=== PATIENT | female | born 1990 | race Two or more races ===

== ENCOUNTER 2017-03-19 10:28 | Emergency (ER) | payer OTHER ==
[2017-03-19 10:32] VITALS: BMI 46.7
[2017-03-19] MEDS ORDERED: ONDANSETRON 4 MG/2 ML VIAL IVPUSH ONE (11:10)
[2017-03-19] MEDS ORDERED: SODIUM CHLORIDE 0.9% 1000 ML INFUS.BAG IV ONE (11:10)
[2017-03-19] MEDS ORDERED: FAMOTIDINE 20 MG/50 ML IVPB 50 ML IVPB ONE ×2 (11:10→11:23)
[2017-03-19] MEDS ORDERED: ONDANSETRON 4 MG/2 ML VIAL ONE (11:23)
--- NOTE | 2017-03-19 11:23 | PDOC ---
History of Present Illness - General History Source: Patient Exam Limitations: No Limitations - History of Present Illness Initial Comments: 03/19/17 11:23 The patient is a 26 year old female, with a significant past medical history of Asthma who presents to the emergency department with nausea and vomiting ( nonbloody, bilious) for the past 3 days. Patient reports mild epigastric pain with constipation and chills. Patient is unable to tolerate PO solids or liquids. Patients LMP was 03/02/2017 and LBM was 3 days ago. She denies chest pain, headache or dizziness. She denies fever, chills. She denies dysuria, frequency, urgency or hematuria. Allergies: NKA Past surgical history: None Social history: Current everyday smoker PCP: None Family hx: Lymphoma, Diabetes <Maggie Chapman - Last Filed: 03/19/17 11:23> <Francy Peters - Last Filed: 03/19/17 14:58> - General Chief Complaint: Nausea/Vomiting Stated Complaint: VOMITING Time Seen by Provider: 03/19/17 10:50 Past History <Maggie Chapman - Last Filed: 03/19/17 11:23> - Past Medical History Anemia: No Asthma: Yes Cancer: No Cardiac Disorders: No CVA: No Psychiatric Problems: Yes (BI-POLAR) - Surgical History Abdominal Surgery: No Appendectomy: No Cardiac Surgery: No Cholecystectomy: No - Immunization History Immunization Up to Date: Yes - Suicide/Smoking/Psychosocial Hx Smoking Status: No Smoking History: Current every day smoker Have you smoked in the past 12 months: Yes Number of Cigarettes Smoked Daily: 4 Information on smoking cessation initiated: No Hx Alcohol Use: No Drug/Substance Use Hx: No Substance Use Type: None <Francy Peters - Last Filed: 03/19/17 14:58> - Past Medical History Allergies/Adverse Reactions: Allergies Allergy/AdvReac Type Severity Reaction Status Date / Time No Known Allergies Allergy Verified 03/19/17 10:29 Home Medications: Ambulatory Orders Cyclobenzaprine HCl [Flexeril -] 10 mg PO TID #21 tablet 09/25/14 Lamotrigine [Lamictal] 300 mg PO BID 09/25/14 [place] Carbonate [Eskalith -] 400 mg PO TID 09/25/14 Lurasidone HCl [Latuda] 20 mg PO DAILY 09/25/14 Methylprednisolone [Medrol Dose Pj] 4 mg PO ASDIR #21 tablet 09/25/14 Naproxen [Naprosyn -] 500 mg PO BID #28 tablet 09/25/14 Oxycodone HCl/Acetaminophen [Percocet 5/325 -] 1 - 2 tab PO Q6H #20 tab Famotidine [Pepcid] 20 mg PO DAILY #14 tablet 03/19/17 Ondansetron [Zofran Odt -] 4 mg SL TID PRN #10 od.tablet 03/19/17 Review of Systems - Review of Systems Able to Perform ROS?: Yes Comments:: 03/19/17 11:23 GENERAL/CONSTITUTIONAL: No fever or chills. No weakness. HEAD, EYES, EARS, NOSE AND THROAT: No change in vision. No ear pain or discharge. No sore throat. GASTROINTESTINAL: + nausea, vomiting, constipation, abdominal pain. No diarrhea. GENITOURINARY: No dysuria, frequency, or change in urination. CARDIOVASCULAR: No chest pain or shortness of breath. RESPIRATORY: No cough, wheezing, or hemoptysis. MUSCULOSKELETAL: No joint or muscle swelling or pain. No neck or back pain. SKIN: No rash NEUROLOGIC: No headache, vertigo, loss of consciousness, or change in strength/ sensation. ENDOCRINE: No increased thirst. No abnormal weight change. HEMATOLOGIC/LYMPHATIC: No anemia, easy bleeding, or history of blood clots. ALLERGIC/IMMUNOLOGIC: No hives or skin allergy. <Maggie Chapman - Last Filed: 03/19/17 11:23> *Physical Exam - Vital Signs Last Vital Signs Temp Pulse Resp BP Pulse Ox 98.2 F 87 18 144/84 100 03/19/17 10:29 03/19/17 10:29 03/19/17 10:29 03/19/17 10:29 03/19/17 10:29 - Physical Exam Comments: 03/19/17 11:24 GENERAL: Awake, alert, and fully oriented, in no acute distress. +Obese HEAD: No signs of trauma EYES: PERRLA, EOMI, sclera anicteric, conjunctiva clear ENT: Auricles normal inspection, hearing grossly normal, nares patent, oropharynx clear without exudates. Moist mucosa NECK: Normal ROM, supple, no lymphadenopathy, JVD, or masses LUNGS: Breath sounds equal, clear to auscultation bilaterally. No wheezes, and no crackles HEART: Regular rate and rhythm, normal S1 and S2, no murmurs, rubs or gallops ABDOMEN: +Mild epigastric tenderness. Soft, nontender, normoactive bowel sounds. No guarding, no rebound. No masses EXTREMITIES: Normal range of motion, no edema. No clubbing or cyanosis. No cords, erythema, or tenderness NEUROLOGICAL: Cranial nerves II through XII grossly intact. Normal speech, normal gait SKIN: Warm, Dry, normal turgor, no rashes or lesions noted. <Maggie Chapman - Last Filed: 03/19/17 11:23> - Vital Signs Last Vital Signs Temp Pulse Resp BP Pulse Ox 98.2 F 87 18 144/84 100 03/19/17 10:29 03/19/17 10:29 03/19/17 10:29 03/19/17 10:29 03/19/17 10:29 <Francy Peters - Last Filed: 03/19/17 14:58> ED Treatment Course - LABORATORY CBC & Chemistry Diagram: 03/19/17 11:00 03/19/17 11:00 - RADIOLOGY Radiology Studies Ordered: Category Date Time Status ABDOMEN FLAT & UPRIGHT [RAD] Stat Radiology 03/19/17 11:09 Ordered <Francy Peters - Last Filed: 03/19/17 14:58> Medical Decision Making - Medical Decision Making 03/19/17 13:31 a/p: 26yo female with n/v x 3 days and inability to tolerate PO -labs -xray abd -nausea control -ivf hydration -preg test -re-eval 03/19/17 13:32 pt with persistent nausea despite zofran, will add reglan 03/19/17 14:54 pt feeling better. po challenge currently. tolerating po 03/19/17 14:54 discussed all labs and imaging. Pt stable for d/c to home. Discussed need to follow up with PMD and with GI. ANswered all questions. Pt understands all reasons to return to the ED. <Francy Peters - Last Filed: 03/19/17 14:58> *DC/Admit/Observation/Transfer - Attestations Scribe Attestion: 03/19/17 11:24 Documentation prepared by Maggie Chapman, acting as medical records coordinator for Francy Peters DO <Maggie Chapman - Last Filed: 03/19/17 11:23> - Discharge Dispostion Admit: No - Attestations Physician Attestion: 03/19/17 14:58 I, Dr. Francy Peters DO, attest that this document has been prepared under my direction and personally reviewed by me in its entirety. I further attest, that it accurately reflects all work, treatment, procedures and medical decision -making performed by me. <Francy Peters - Last Filed: 03/19/17 14:58> Diagnosis at time of Disposition: Nausea and vomiting - Discharge Dispostion Disposition: HOME Condition at time of disposition: Stable - Prescriptions Prescriptions: Famotidine [Pepcid] 20 mg PO DAILY #14 tablet Ondansetron [Zofran Odt -] 4 mg SL TID PRN #10 od.tablet PRN Reason: Nausea And/Or Vomiting - Referrals Referrals: Ari Reddy MD [Staff Physician] - Loc Orta MD [Staff Physician] - - Patient Instructions Printed Discharge Instructions: DI for Vomiting -- Adult, DI for Nausea -- Adult Additional Instructions: Please take all meds as prescribed. Please follow up with your PMD and the municipal court magistrate. Please return to the ED with any further concerns. - Post Discharge Activity Forms/Work/School Notes: Back to Work
[2017-03-19 11:32] LABS: BASOPHIL 0.9 % (0-2.0); EOSINOPHIL 3.6 % (0-4.5); MCHC 29.9 g/dl (32.0-36.0); MEAN CELL VOLUME 64.1 fl (80-96); MEAN PLT VOLUME 8.4 fl (7.5-11.1); NEUTROPHILS 62.5 % (42.8-82.8); PLATELET COUNT 279 K/MM3 (134-434); RDW 20.7 % (11.6-15.6); WHITE BLOOD COUNT 5.4 K/mm3 (4.0-10.0)
[2017-03-19 11:36] LABS: URINE APPEARANCE CLOUDY; URINE BILIRUBIN NEGATIVE (NEGATIVE); URINE BLOOD NEGATIVE (NEGATIVE); URINE COLOR YELLOW; URINE GLUCOSE (UA) NEGATIVE (NEGATIVE); URINE KETONE NEGATIVE (NEGATIVE); URINE LEUK ESTERASE TRACE (NEGATIVE); URINE NITRITE NEGATIVE (NEGATIVE); URINE UROBILINOGEN NEGATIVE mg/dL (0.2-1.0)
[2017-03-19 11:39] LABS: URINE PROTEIN 1+ (NEGATIVE)
[2017-03-19 11:40] LABS: URINE MUCUS MODERATE; URINE RBC 1 /hpf (0-3); URINE WBC 9 /hpf (3-5)
[2017-03-19 11:42] LABS: MCH 19.1 pg (25.7-33.7)
[2017-03-19 12:02] LABS: ALK PHOS 64 U/L (45-117); ANION GAP 5 (8-16); BILIRUBIN,TOTAL 0.5 mg/dL (0.2-1.0); CALCIUM 8.6 mg/dL (8.5-10.1); CO2 27 mmol/L (21-32); CREATININE 0.6 mg/dL (0.55-1.02); GLUCOSE,RANDOM 93 mg/dL (74-106); MAGNESIUM 2.3 mg/dL (1.8-2.4); SGOT/AST 15 U/L (15-37); SGPT/ALT 21 U/L (12-78); TOT PROT 7.9 g/dl (6.4-8.2)
[2017-03-19 12:49] LABS: HYPOCHROMIA 2+; MICROCYTOSIS 2+
[2017-03-19 12:50] LABS: ANISOCYTOSIS 2+
[2017-03-19] MEDS ORDERED: METOCLOPRAMIDE HCL INJECTION 10 MG/2 ML VIAL ONE (13:31)
[2017-03-19] MEDS ORDERED: METOCLOPRAMIDE HCL INJECTION 10 MG/2 ML VIAL IVPUSH ONE (13:31)
[2017-03-19 15:32] VITALS: BP 140/85; PULSE 80; TEMP 98.6
== END 2017-03-19 14:45 | disposition home or self-care (01) ==
LOC: JER 10:28
PROC: 3E033GC Introduction of Other Therapeutic Substance into Peripheral Vein, Percutaneous Approach (ICD-10-PCS; principal; 2017-03-19)
PROC: 3E0337Z Introduction of Electrolytic and Water Balance Substance into Peripheral Vein, Percutaneous Approach (ICD-10-PCS; 2017-03-19)
DX: R11.2 Nausea with vomiting, unspecified (principal); F17.210 Nicotine dependence, cigarettes, uncomplicated; J45.909 Unspecified asthma, uncomplicated
CPT/HCPCS: 36415; 74020-TC; 80053; 81003; 81015; 83690; 83735; 84703; 85025; 99281-25

== ENCOUNTER 2018-02-06 22:12 | Inpatient (IN) | payer OTHER ==
[2018-02-06 22:39] VITALS: BMI 41.1
--- NOTE | 2018-02-06 23:28 | PDOC ---
History of Present Illness - General Chief Complaint: Syncope/Near Syncope Stated Complaint: SYNCOPE, DIZZINES Time Seen by Provider: 02/06/18 23:28 History Source: Patient, Friend Exam Limitations: No Limitations - History of Present Illness Initial Comments: 02/06/18 23:36 27F with PMH of asthma, bipolar disorder (used to be on lithium many years ago now not on meds), who presents to the ER with her cousins after a syncopal event. Per patient and cousins she was eating dinner a few hours ago and all of a sudden she felt her heart slow down, she got very tired, "felt like the ground was being taken out from under me and then I passed out." Patient was able to put her hands out on the table before it happened. The patient's 2 cousins are at bedside and verify her story. They deny any trauma. The patient denies any symptoms or pain at this time. She states she feels very tired and her body feels heavy. She states [place]. She currently denies nausea, vomiting, fever, chills, chest pain, shortness of breath, urinary or GI symptoms. She denies visual changes or loss of bowel or bladder function. She admits to smoking 4 cigarettes a day and smoking marijuana for recreational purposes. She states she is being follows by a experimental outboard motors mechanic for anemia and she is getting Iron infusions. She is currently being worked up for thalassemia and the lab results are pending. Past History - Past Medical History Allergies/Adverse Reactions: Allergies Allergy/AdvReac Type Severity Reaction Status Date / Time No Known Allergies Allergy Verified 02/06/18 22:30 Home Medications: Ambulatory Orders NK [No Known Home Medication] 02/07/18 Anemia: Yes (Thalassemia?) Asthma: Yes Cancer: No Cardiac Disorders: No CVA: No COPD: No Psychiatric Problems: Yes (BI-POLAR) - Surgical History Abdominal Surgery: No Appendectomy: No Cardiac Surgery: No Cholecystectomy: No - Immunization History Immunization Up to Date: Yes - Suicide/Smoking/Psychosocial Hx Smoking Status: No Smoking History: Current every day smoker (4 cigarettes a day) Have you smoked in the past 12 months: Yes Number of Cigarettes Smoked Daily: 4 Information on smoking cessation initiated: No Hx Alcohol Use: No Drug/Substance Use Hx: Yes (Marijuana) Substance Use Type: Marijuana Review of Systems - Review of Systems Able to Perform ROS?: Yes Is the patient limited Macedonian proficient: No Constitutional: Yes: See HPI, Weakness. No: Chills, Fever HEENTM: No: Symptoms Reported, See HPI, Eye Pain, Blurred Vision, Tearing, Recent change in vision, Double Vision, Cataracts, Ear Pain, Ocular Prothesis, Ear Discharge, Nose Pain, Nose Congestion, Tinnitus, Nose Bleeding, Hearing Loss , Throat Pain, Throat Swelling, Mouth Pain, Dental Problems, Difficulty Swallowing, Mouth Swelling, Other Respiratory: No: Symptoms reported, See HPI, Cough, Orthopnea, Shortness of Breath, SOB with Exertion, SOB at Rest, Stridor, Wheezing, Productive cough, Hemoptysis, Other Cardiac (ROS): Yes: Syncope, Other (felt her heart slow down) ABD/GI: No: Symptoms Reported, See HPI, Abdominal Distended, Abd. Pain w/ defecation, Blood Streaked Bowels, Constipated, Diarrhea, Difficulty Swallowing , Nausea, Poor Appetite, Poor Fluid Intake, Rectal Bleeding, Vomiting, Indigestion, Abdominal cramping, Tarry Stools, Other : No: Symptoms Reported, See HPI, Burning, Dysuria, Discharge, Frequency, Flank Pain, Hematuria, Incontinence, Pain, Urgency, Testicular Mass, Testicular Swelling, Lesions, Testicular Pain, Other Musculoskeletal: No: Symptoms Reported, See HPI, Back Pain, Gout, Joint Pain, Joint Swelling, Muscle Pain, Muscle Weakness, Neck Pain, Joint Stiffness, Other Integumentary: No: Symptoms Reported, See HPI, Bruising, Change in Color, Change in Hair/Nails, Dryness, Erythema, Flushing, Lesions, Lumps, Pallor, Pruritus, Rash, Sweating, Other *Physical Exam - Vital Signs Last Vital Signs Temp Pulse Resp BP Pulse Ox 98.8 F 93 H 18 129/74 100 02/06/18 22:31 02/06/18 22:31 02/06/18 22:31 02/06/18 22:31 02/06/18 22:31 ED Treatment Course - LABORATORY CBC & Chemistry Diagram: 02/07/18 00:01 02/07/18 00:01 Medical Decision Making - Medical Decision Making 02/07/18 00:08 27F with no significant PMH presents to the ER after a syncopal event. DDx includes but not limited to: Arrhythmias such as A. flutter, SVT, WPW, Brug[place], HOCM, prolonged QT syndrome, and ectopic will do: CBC CMP Mg Phos TSH Cardiac profile UA Upreg EKG IVF Reassess Likely place on telemetry observation 02/07/18 01:56 Labs noted Patient's TSH consistent with hyperthyroidism TSH is <0.01 Will admit for syncope and new onset symptomatic hyperthyroidism will add on T3 T4 Patient was signed out to Dr. Yousif who has assumed care of the patient and will follow up all ancillary studies *DC/Admit/Observation/Transfer Diagnosis at time of Disposition: Hyperthyroidism - Discharge Dispostion Decision to Admit order: Yes - Referrals Referrals: Jose Armando Chambers MD [Primary Care Provider] - - Patient Instructions - Post Discharge Activity
[2018-02-06] MEDS ORDERED: SODIUM CHLORIDE 1,000 ML IV STA (23:42)
--- NOTE | 2018-02-07 00:07 | PDOC ---
Attending Attestation - HPI HPI: 02/07/18 01:13 Patient is a 27 year old female with a significant past medical history of asthma, bipolar disorder, who presents to the ED with complaints of a syncopal episode. As per patient's cousin, patient was eating dinner this evening when she began to suddenly feel like her heart was slowing down with associated sudden lethargy. Patient's reports patient began to complain that it felt as if the ground was being taken out from underneath here, before losing consciousness. As per patient's family, patient's LOC was witness stating she did not hit her head on the table or floor stating she braced her hands before falling. Patient reports experiencing no pain while in the ED but does state she feels increasingly tired, with general body heaviness. Denies chest pain, sob. Denies fevers, chills. Denies nausea, vomiting. Denies contact with sick individuals, out of state travelling. Denies any other symptoms. Allergies: none Social history: Current smoker (4 cigarettes per day). No alcohol. Current marijuana use. Surgical history: None PMD: Dr. Jose Armando Chambers - Physicial Exam PE: 02/07/18 01:13 GENERAL: Awake, alert, and fully oriented, in no acute distress HEAD: No signs of trauma EYES: PERRLA, EOMI, sclera anicteric, conjunctiva clear ENT: Auricles normal inspection, hearing grossly normal, nares patent, oropharynx clear without exudates. Moist mucosa NECK: Normal ROM, supple, no lymphadenopathy, JVD, or masses LUNGS: Breath sounds equal, clear to auscultation bilaterally. No wheezes, and no crackles HEART: Regular rate and rhythm, normal S1 and S2, no murmurs, rubs or gallops ABDOMEN: Soft, nontender, normoactive bowel sounds. No guarding, no rebound. No masses EXTREMITIES: Normal range of motion, no edema. No clubbing or cyanosis. No cords, erythema, or tenderness NEUROLOGICAL: Cranial nerves II through XII grossly intact. Normal speech, normal gait SKIN: Warm, Dry, normal turgor, no rashes or lesions noted. <Ron Shine - Last Filed: 02/07/18 01:13> - Resident Resident Name: Yesika Rocha - ED Attending Attestation I have performed the following: I have examined & evaluated the patient, The case was reviewed & discussed with the resident, I agree w/resident's findings & plan, Exceptions are as noted - Medical Decision Making 02/07/18 00:04 A portion of this note was written by my scribe, under my supervision. Vital Signs Temp Pulse Resp BP Pulse Ox 98.8 F 93 H 18 129/74 100 02/06/18 22:31 02/06/18 22:31 02/06/18 22:31 02/06/18 22:31 02/06/18 22:31 27 year old female c/ hx of obesity, anemia (baseline mid 8's, and under evaluation for thalassemia) presents with syncope. The patient was well and in her usual state of health. She was eating dinner with her friends. She suddenly felt lightheaded and had a brief syncopal episode sitting in the chair. No head trauma. Denied chest pain or SOB or palpitations. Pt reports feeling generally but without focal symptoms. Denies pain. Denies recent illnesses, fevers, chills, cough, vomiting, diarrhea. Also notable, is that the patient had a similar episode two weeks ago (drop syncope). Given multiple episodes of this syncope, will need to evaluate for cardiac causes. Also r/o symptomatic anemia. labs, chest xray, telemetry, test, admit given multiple episodes. 02/07/18 01:43 CBC, BMP 02/07/18 00:01 02/07/18 00:01 CMP Sodium 139 mmol/L (136-145) 02/07/18 00:01 Potassium 3.9 mmol/L (3.5-5.1) 02/07/18 00:01 Chloride 104 mmol/L (98-107) 02/07/18 00:01 Carbon Dioxide 26 mmol/L (21-32) 02/07/18 00:01 Anion Gap 9 (8-16) 02/07/18 00:01 BUN 9 mg/dL (7-18) 02/07/18 00:01 Creatinine 0.7 mg/dL (0.55-1.02) 02/07/18 00:01 Creat Clearance w eGFR > 60 (>60) 02/07/18 00:01 Random Glucose 117 mg/dL (74-106) H 02/07/18 00:01 Calcium 8.2 mg/dL (8.5-10.1) L 02/07/18 00:01 Phosphorus 5.3 mg/dL (2.5-4.9) H 02/07/18 00:01 Magnesium 1.9 mg/dL (1.8-2.4) 02/07/18 00:01 Total Bilirubin 0.1 mg/dL (0.2-1.0) L 02/07/18 00:01 AST 17 U/L (15-37) 02/07/18 00:01 ALT 24 U/L (12-78) 02/07/18 00:01 Alkaline Phosphatase 69 U/L (45-117) 02/07/18 00:01 Creatine Kinase 66 IU/L (26-192) 02/07/18 00:01 Troponin I < 0.02 ng/ml (0.00-0.05) 02/07/18 00:01 Total Protein 6.8 g/dl (6.4-8.2) 02/07/18 00:01 Albumin 3.4 g/dl (3.4-5.0) 02/07/18 00:01 TSH < 0.01 uIU/ml (0.358-3.74) L 02/07/18 00:01 TSH noted to be < 0.01. Hypothyroidism could be the reason for her syncope. Will admit patient for further evaluation. <Lv Leonard - Last Filed: 02/07/18 01:44> Heart Score/ECG Review #1 ECG reviewed & interpreted by me at: 00:00 02/07/18 00:02 NSR 88, no std/rosina, normal axis, normal intervals, QTC 464 msec, no brugada, no HOCM, no WPW <Lv Leonard - Last Filed: 02/07/18 01:44>
[2018-02-07 00:30] LABS: HEMOGLOBIN 9.2 GM/dL (10.7-15.3); MCH 20.7 pg (25.7-33.7); MCHC 31.5 g/dl (32.0-36.0); MEAN CELL VOLUME 65.6 fl (80-96); MEAN PLT VOLUME 8.8 fl (7.5-11.1); PLATELET COUNT 264 K/MM3 (134-434); RBC 4.42 M/mm3 (3.60-5.2); RDW 23.2 % (11.6-15.6)
[2018-02-07 00:35] LABS: URINE APPEARANCE CLOUDY; URINE BILIRUBIN NEGATIVE (<2.0 mg/dL); URINE COLOR YELLOW; URINE GLUCOSE (UA) NEGATIVE (NEGATIVE); URINE KETONE NEGATIVE (NEGATIVE); URINE LEUK ESTERASE TRACE (NEGATIVE); URINE NITRITE NEGATIVE (NEGATIVE); URINE PROTEIN NEGATIVE (NEGATIVE); URINE UROBILINOGEN NEGATIVE mg/dL (0.2-1.0)
[2018-02-07 00:41] LABS: EPI CELLS MODERATE /HPF (FEW); URINE HYALINE CAST 6 /lpf; URINE MUCUS RARE
[2018-02-07 01:04] LABS: ALBUMIN 3.4 g/dl (3.4-5.0); ANION GAP 9 (8-16); BILIRUBIN,TOTAL 0.1 mg/dL (0.2-1.0); BLOOD UREA NITROGEN 9 mg/dL (7-18); CALCIUM 8.2 mg/dL (8.5-10.1); CHLORIDE 104 mmol/L (98-107); CO2 26 mmol/L (21-32); CREATININE 0.7 mg/dL (0.55-1.02); GLUCOSE,RANDOM 117 mg/dL (74-106); MAGNESIUM 1.9 mg/dL (1.8-2.4); PHOSPHOROUS 5.3 mg/dL (2.5-4.9); POTASSIUM 3.9 mmol/L (3.5-5.1); SGOT/AST 17 U/L (15-37); SGPT/ALT 24 U/L (12-78); SODIUM 139 mmol/L (136-145); TOT PROT 6.8 g/dl (6.4-8.2)
[2018-02-07 01:07] LABS: ALK PHOS 69 U/L (45-117)
[2018-02-07] MEDS ORDERED: SODIUM CHLORIDE 1,000 ML IV SCH (03:30)
--- NOTE | 2018-02-07 03:38 | HP ---
CHIEF COMPLAINT: Syncope PCP: Reyes ([facility]) Hematology: Efrain Romano HISTORY OF PRESENT ILLNESS: 27 y/o female, accompanied by her two cousins, presents after she lost conciousness for 10 seconds. 2 weeks ago, patient had a similar episode of at the beach where she stood up, felt dizziness and feeling like she was going to pass out although she did not lose consciousness during this episode. For the 3 days that followed this episode, patient did not feel herself and visited her PCP at [facility]. She was found to have anemia and started on Iron Infusions; follows with Dr. Efrain Romano (Hematology). Today, patient went to dinner at a new restaurant and after eating while sitting upright, she felt her heart slowed down. Her cousins witnessed her slump forward and lose consciousness for 5-10 seconds accompanied by a jerking motion of her head. Patient did not have any alcohol at dinner this evening. This is the 1st time she has lost consciousness. No recent medication changes, no changes in PO intake. Her LMP ended 3 days ago. Denies any hx of seizures, anxiety, panic attacks or previous syncopal episodes. Denies any loss of bowel or bladder control. Denies chest pain, Palpitations, chest tightness, nausea, vomiting, diarrhea. ER course was notable for: (1) TSH <0.01 (2) (3) Recent Travel: Denies PAST MEDICAL HISTORY: Bipolar disorder Anemia s/p Iron Infusions PAST SURGICAL HISTORY: Denies Social History: Smokin cigarettes daily Alcohol: Social use Drugs: Marijuana 3-4x week Family History: Allergies No Known Allergies Allergy (Verified 02/06/18 22:30) HOME MEDICATIONS: Home Medications Medication Instructions Recorded NK [No Known Home Medication] 02/07/18 REVIEW OF SYSTEMS CONSTITUTIONAL: Absent: fever, chills, diaphoresis, generalized weakness, malaise, loss of appetite, weight change HEENT: Absent: rhinorrhea, nasal congestion, throat pain, throat swelling, difficulty swallowing, mouth swelling, ear pain, eye pain, visual changes CARDIOVASCULAR: Present: syncope, lightheadedness Absent: chest pain, palpitations, irregular heart rate, peripheral edema RESPIRATORY: Absent: cough, shortness of breath, dyspnea with exertion, orthopnea, wheezing, stridor, hemoptysis GASTROINTESTINAL: Absent: abdominal pain, abdominal distension, nausea, vomiting, diarrhea, constipation, melena, hematochezia GENITOURINARY: Absent: dysuria, frequency, urgency, hesitancy, hematuria, flank pain, genital pain MUSCULOSKELETAL: Absent: myalgia, arthralgia, joint swelling, back pain, neck pain SKIN: Absent: rash, itching, pallor HEMATOLOGIC/IMMUNOLOGIC: Absent: easy bleeding, easy bruising, lymphadenopathy, frequent infections ENDOCRINE: Absent: unexplained weight gain, unexplained weight loss, heat intolerance, cold intolerance NEUROLOGIC: Present: dizziness Absent: headache, focal weakness or paresthesias, unsteady gait, seizure, mental status changes, bladder or bowel incontinence PSYCHIATRIC: Absent: anxiety, depression, suicidal or homicidal ideation, hallucinations. PHYSICAL EXAMINATION Vital Signs - 24 hr 02/06/18 02/07/18 22:31 00:07 Temperature 98.8 F Pulse Rate 93 H Respiratory 18 Rate Blood Pressure 129/74 O2 Sat by Pulse 100 100 Oximetry (%) GENERAL: Awake, alert, and fully oriented, in no acute distress. EYES: PERRL, EOMI THROAT: oropharynx clear without exudates. Moist mucous membranes. NECK: No JVD LUNGS: Breath sounds equal, clear to auscultation bilaterally. No wheezes. HEART: Regular rate and rhythm, normal S1 and S2 without murmur. ABDOMEN: Obese, Soft, nontender, not distended, normoactive bowel sounds, no guarding. MUSCULOSKELETAL: Normal range of motion at all joints. No CVA tenderness. EXTREMITIES: 2+ pulses, No peripheral edema. NEUROLOGICAL: Cranial nerves II-XII intact. Normal speech. Normal gait. PSYCHIATRIC: Cooperative. Good eye contact. Appropriate mood and affect. SKIN: Warm, dry, normal turgor, no rashes or lesions noted, normal capillary refill. Laboratory Results - last 24 hr 02/07/18 02/07/18 02/07/18 00:01 00:01 00:01 WBC 6.0 RBC 4.42 Hgb 9.2 L Hct 29.0 L MCV 65.6 L MCH 20.7 L MCHC 31.5 L RDW 23.2 H Plt Count 264 MPV 8.8 Sodium 139 Potassium 3.9 Chloride 104 Carbon Dioxide 26 Anion Gap 9 BUN 9 Creatinine 0.7 Creat Clearance w eGFR > 60 Random Glucose 117 H Calcium 8.2 L Phosphorus 5.3 H Magnesium 1.9 Total Bilirubin 0.1 L AST 17 ALT 24 Alkaline Phosphatase 69 Creatine Kinase 66 Troponin I < 0.02 Total Protein 6.8 Albumin 3.4 TSH Free T4 Serum , Qual Urine Color Urine Appearance Urine pH Ur Specific [place] Urine Protein Urine Glucose (UA) Urine Ketones Urine Blood Urine Nitrite Urine Bilirubin Urine Urobilinogen Ur Leukocyte Esterase Urine WBC (Auto) Urine RBC (Auto) Ur Epithelial Cells Hyaline Casts Urine Mucus Blood Type A POSITIVE Antibody Screen Negative 02/07/18 02/07/18 02/07/18 00:01 00:01 00:01 WBC RBC Hgb Hct MCV MCH MCHC RDW Plt Count MPV Sodium Potassium Chloride Carbon Dioxide Anion Gap BUN Creatinine Creat Clearance w eGFR Random Glucose Calcium Phosphorus Magnesium Total Bilirubin AST ALT Alkaline Phosphatase Creatine Kinase Troponin I Total Protein Albumin TSH < 0.01 L Free T4 Serum , Qual Negative Urine Color Yellow Urine Appearance Cloudy Urine pH 5.0 Ur Specific [place] 1.013 Urine Protein Negative Urine Glucose (UA) Negative Urine Ketones Negative Urine Blood Negative Urine Nitrite Negative Urine Bilirubin Negative Urine Urobilinogen Negative Ur Leukocyte Esterase Trace Urine WBC (Auto) 9 Urine RBC (Auto) 2 Ur Epithelial Cells Moderate Hyaline Casts 6 Urine Mucus Rare Blood Type Antibody Screen 02/07/18 02:10 WBC RBC Hgb Hct MCV MCH MCHC RDW Plt Count MPV Sodium Potassium Chloride Carbon Dioxide Anion Gap BUN Creatinine Creat Clearance w eGFR Random Glucose Calcium Phosphorus Magnesium Total Bilirubin AST ALT Alkaline Phosphatase Creatine Kinase Troponin I Total Protein Albumin TSH Free T4 1.46 Serum , Qual Urine Color Urine Appearance Urine pH Ur Specific [place] Urine Protein Urine Glucose (UA) Urine Ketones Urine Blood Urine Nitrite Urine Bilirubin Urine Urobilinogen Ur Leukocyte Esterase Urine WBC (Auto) Urine RBC (Auto) Ur Epithelial Cells Hyaline Casts Urine Mucus Blood Type Antibody Screen Active Medications Sodium Chloride (Normal Saline -) 1,000 mls @ 100 mls/hr IV ASDIR [facility] Last Admin: 02/07/18 04:23 Dose: 100 mls/hr ASSESSMENT/PLAN: 27 y/o female presents after she lost conciousness for 10 seconds and slumped forward accompanied by a jerking motion of her head will be observed in TELE. 1. Syncopal Episode - Currently being worked up for anemia after Similar episode 2 weeks ago and started on Iron Infusions - Her episode today where she lost consciousness was witnessed by 2 cousins. Denies any loss of bowel or bladder control. - No Other recent medication changes, No hx of seizures, No previous syncopal episodes - Consider [employer] interactions with Benadryl and Mai use - EKG Nonspecific changes, Repeat pending - Fall percautions - BP to r/o orthostatics: Sitting 133/77, standing 126/77, Supine 125/74 - Continue Normal Saline @ 100 mls/hr IV - Head CT pending official read - ECHO ordered - Urine toxicology ordered - EEG Ordered - Stool occult blood - Carotid doppler ordered - Cardiology (Dr. Hector) consulted - Neurology (Dr. Yu) consulted 2. New onset Hyperthyroidism - Denies Hand tremor, excessive sweating, heat intolerance, weight loss, palpitations - TSH < 0.01 - Free T4 146 - Free T3 pending - Endocrinology (Dr. Crawley) consulted - EKG Nonspecific changes, Repeat pending 3. Bipolar disorder - Patient has not been on medications for the past 1 year - Will continue to monitor - Can consider psych eval if symptomatic 4. Anemia - Patient being worked up for thalassemia outpatient - Recently started on Iron Infusions - Can consider Heme consult if becomes symptomatic or H&H drops 5. PPx - DVT: Lovenox 40mg SQ Q24H 6. FEN - Normal Saline @ 100 mls/hr IV - Lytes wnl, replete as needed - Cholesterol, fat controlled diet Visit type - Emergency Visit Emergency Visit: Yes ED Registration Date: 02/07/18 Care time: The patient presented to the Emergency Department on the above date and was hospitalized for further evaluation of their emergent condition. - New Patient This patient is new to me today: Yes Date on this admission: 02/07/18 - Critical Care Critical Care patient: No Hospitalist Screening - Colonoscopy Questionnaire Colonoscopy Questionnaire: Colonoscopy Questionnaire - Patient: 50 - 75 years old and never had a screening colonoscopy: Unknown History of colon or rectal polyps, or CA: Unknown History of IBD, Crohn's disease or UC: Unknown History of abdominal radiation therapy as a child: Unknown - Relative: 1 with colon or rectal CA, or polyps at age 60 or younger: Unknown Colon or rectal CA diagnosed at age 45 or younger: Unknown Multiple relatives with colon or rectal CA: Unknown - Outcome: Screening Result: Negative Screen
--- NOTE | 2018-02-07 04:12 | PN ---
Teaching Attending Note Name of Resident: Skye Li ATTENDING PHYSICIAN STATEMENT I saw and evaluated the patient. I reviewed the resident's note and discussed the case with the resident. I agree with the resident's findings and plan as documented. 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 As per patient's cousin, patient was eating dinner this evening when she began to suddenly feel like her heart was slowing down with associated sudden lethargy. She says that it felt as if the ground was being taken out from underneath here, before losing consciousness. As per patient's family, patient's LOC was witness stating she did not hit her head on the table or floor stating she braced her hands before falling. Patient reports experiencing no pain while in the ER but does state she feels increasingly tired , with general body heaviness. She also had syncopal episode 2 weeks ago on the beach. Her LMP ended 3 days ago. OBJECTIVE: Alert. Not orthostatic Vital Signs Period Temp Pulse Resp BP Sys/Hess Pulse Ox Last 24 Hr 98.8 F 93 18 129/74 100-100 HEENT: No Jaundice, eye redness or discharge, PERRLA, EOMI. Normocephalic, atraumatic. External ears are normal and hearing is grossly intact. No nasal discharge. Neck: Supple, nontender. No palpable adenopathy or thyromegaly. No JVD Chest: Good effort. Clear to auscultation and percussion. Heart: Regular. No S3, rub or murmur Abdomen: Not distended, soft, nontender and no HSM. No rebound or guarding. Normoactive bowel sounds. Ext: Peripheral pulses intact. No leg edema. Skin: Warm and dry. No petechiae, rash or ecchymosis. Neuro: Alert. Oriented x3. CN 2-12 grossly intact. Sensation grossly intact in all four extremities and DTR are symmetric. Current Medications Generic Name Dose Route Start Last Admin Trade Name Freq PRN Reason Stop Dose Admin Sodium Chloride 1,000 mls @ 100 mls/hr 02/07/18 03:30 Normal Saline - IV ASDIR [facility] Home Medications Medication Instructions Recorded NK [No Known Home Medication] 02/07/18 Abnormal Lab Results 02/07/18 02/07/18 02/07/18 00:01 00:01 00:01 Hgb 9.2 L Hct 29.0 L MCV 65.6 L MCH 20.7 L MCHC 31.5 L RDW 23.2 H Random Glucose 117 H Calcium 8.2 L Phosphorus 5.3 H Total Bilirubin 0.1 L TSH < 0.01 L ASSESSMENT AND PLAN: 1. Syncope - Etiology unclear in the setting of thalassemia. Nonspecific changes on EKG but new finding of low TSH, hypocalcemia and hyperphosphatemia. Free T4 pending. Monitor on telemetry and get urine toxicology, ECHO, head CT, EEG, carotid doppler, PTH level, urine calcium, stool guaiac, repeat EKG, cardiology and neurology consults. Implement fall precautions. Patient counseled to stop daily marijuana use and frequent use of arcelia and benadryl. 2. DVT prophylaxis - Lovenox 40 mg SQ q 24 hours. 3. Advance directives - Full code 4. Tobacco Use We will provide patient all the necessary assistance to facilitate smoking cessation and prescribe Nicotine patch.
[2018-02-07 07:22] LABS: BASO % 0.3 % (0-2.0); EOS % 5.2 % (0-4.5); HEMATOCRIT 28.8 % (32.4-45.2); HEMOGLOBIN 8.9 GM/dL (10.7-15.3); LYMPH % 36.7 % (8-40); MCH 20.4 pg (25.7-33.7); MCHC 30.8 g/dl (32.0-36.0); MEAN CELL VOLUME 66.3 fl (80-96); MEAN PLT VOLUME 9.4 fl (7.5-11.1); NEUT % 50.8 % (42.8-82.8); PLATELET COUNT 246 K/MM3 (134-434); RBC 4.35 M/mm3 (3.60-5.2); RDW 24.5 % (11.6-15.6); WHITE BLOOD COUNT 5.7 K/mm3 (4.0-10.0)
[2018-02-07 07:48] LABS: ALBUMIN 3.4 g/dl (3.4-5.0); ANION GAP 10 (8-16); BLOOD UREA NITROGEN 9 mg/dL (7-18); CALCIUM 8.5 mg/dL (8.5-10.1); CHLORIDE 107 mmol/L (98-107); CO2 24 mmol/L (21-32); CREATININE 0.6 mg/dL (0.55-1.02); GLUCOSE,RANDOM 97 mg/dL (74-106); PHOSPHOROUS 4.2 mg/dL (2.5-4.9); POTASSIUM 4.2 mmol/L (3.5-5.1); SGOT/AST 14 U/L (15-37); SGPT/ALT 22 U/L (12-78); SODIUM 141 mmol/L (136-145)
[2018-02-07 07:49] LABS: ALK PHOS 66 U/L (45-117); BILIRUBIN,TOTAL 0.2 mg/dL (0.2-1.0); TOT PROT 6.6 g/dl (6.4-8.2)
[2018-02-07 08:04] LABS: COCAINE, UR NEGATIVE ng/ml (CUTOFF=300); METHADONE, UR NEGATIVE ng/ml (CUTOFF=300); OPIATES, URI NEGATIVE ng/ml (CUTOFF=300); PHENCYCLIDINE,URINE NEGATIVE ng/ml (CUTOFF=25); URINE AMPHETAMINES NEGATIVE ng/ml (CUTOFF=500); URINE BARBITURATES NEGATIVE ng/ml (CUTOFF=200); URINE BENZODIAZEPINES NEGATIVE ng/ml (CUTOFF=200)
--- NOTE | 2018-02-07 08:20 | PN ---
Physical Exam: SUBJECTIVE: Patient seen and examined, no new events inhouse. Reports 2 syncopal episodes once 2 weeks ago [place], was out in the sun and another yesterday after dinner, when had not eaten much all day, also being worked up for anemia outpatient s/p iron infusions x 2. No h/o menorrhagia, dark or bloody stools. Reports family member with h/o NICM. OBJECTIVE: Vital Signs Period Temp Pulse Resp BP Sys/Hess Pulse Ox Last 24 Hr 98.8 F 72-93 18-18 113-133/67-77 98-100 GENERAL:morbidly obese female sitting in bed in no acute distress CVS;S1S2 regular, limited habitus Chest: CTAB, no rales or wheezing Abdomen:Soft, obese, NT Neuro: AAOx, power 5/5, sensation intact to light touch and symmetric, no pronator drift, non focal exam, EOMI, PERRL Laboratory Results - last 24 hr 02/07/18 02/07/18 02/07/18 00:01 00:01 00:01 WBC 6.0 RBC 4.42 Hgb 9.2 L Hct 29.0 L MCV 65.6 L MCH 20.7 L MCHC 31.5 L RDW 23.2 H Plt Count 264 MPV 8.8 Absolute Neuts (auto) Neutrophils % Lymphocytes % Monocytes % Eosinophils % Basophils % Nucleated RBC % Sodium 139 Potassium 3.9 Chloride 104 Carbon Dioxide 26 Anion Gap 9 BUN 9 Creatinine 0.7 Creat Clearance w eGFR > 60 Random Glucose 117 H Calcium 8.2 L Phosphorus 5.3 H Magnesium 1.9 Total Bilirubin 0.1 L AST 17 ALT 24 Alkaline Phosphatase 69 Creatine Kinase 66 Troponin I < 0.02 Total Protein 6.8 Albumin 3.4 TSH Free T4 Serum , Qual Urine Color Urine Appearance Urine pH Ur Specific [place] Urine Protein Urine Glucose (UA) Urine Ketones Urine Blood Urine Nitrite Urine Bilirubin Urine Urobilinogen Ur Leukocyte Esterase Urine WBC (Auto) Urine RBC (Auto) Ur Epithelial Cells Hyaline Casts Urine Mucus Opiates Screen Methadone Screen Barbiturate Screen Phencyclidine Screen Ur Amphetamines Screen MDMA (Ecstasy) Screen Benzodiazepines Screen Cocaine Screen U Marijuana (THC) Screen Blood Type A POSITIVE Antibody Screen Negative 02/07/18 02/07/18 02/07/18 00:01 00:01 00:01 WBC RBC Hgb Hct MCV MCH MCHC RDW Plt Count MPV Absolute Neuts (auto) Neutrophils % Lymphocytes % Monocytes % Eosinophils % Basophils % Nucleated RBC % Sodium Potassium Chloride Carbon Dioxide Anion Gap BUN Creatinine Creat Clearance w eGFR Random Glucose Calcium Phosphorus Magnesium Total Bilirubin AST ALT Alkaline Phosphatase Creatine Kinase Troponin I Total Protein Albumin TSH < 0.01 L Free T4 Serum , Qual Negative Urine Color Yellow Urine Appearance Cloudy Urine pH 5.0 Ur Specific [place] 1.013 Urine Protein Negative Urine Glucose (UA) Negative Urine Ketones Negative Urine Blood Negative Urine Nitrite Negative Urine Bilirubin Negative Urine Urobilinogen Negative Ur Leukocyte Esterase Trace Urine WBC (Auto) 9 Urine RBC (Auto) 2 Ur Epithelial Cells Moderate Hyaline Casts 6 Urine Mucus Rare Opiates Screen Methadone Screen Barbiturate Screen Phencyclidine Screen Ur Amphetamines Screen MDMA (Ecstasy) Screen Benzodiazepines Screen Cocaine Screen U Marijuana (THC) Screen Blood Type Antibody Screen 02/07/18 02/07/18 02/07/18 02:10 05:45 06:40 WBC 5.7 RBC 4.35 Hgb 8.9 L Hct 28.8 L MCV 66.3 L MCH 20.4 L MCHC 30.8 L RDW 24.5 H Plt Count 246 MPV 9.4 Absolute Neuts (auto) 2.9 Neutrophils % 50.8 Lymphocytes % 36.7 D Monocytes % 7.0 Eosinophils % 5.2 H Basophils % 0.3 Nucleated RBC % 0 Sodium Potassium Chloride Carbon Dioxide Anion Gap BUN Creatinine Creat Clearance w eGFR Random Glucose Calcium Phosphorus Magnesium Total Bilirubin AST ALT Alkaline Phosphatase Creatine Kinase Troponin I Total Protein Albumin TSH Free T4 1.46 Serum , Qual Urine Color Urine Appearance Urine pH Ur Specific [place] Urine Protein Urine Glucose (UA) Urine Ketones Urine Blood Urine Nitrite Urine Bilirubin Urine Urobilinogen Ur Leukocyte Esterase Urine WBC (Auto) Urine RBC (Auto) Ur Epithelial Cells Hyaline Casts Urine Mucus Opiates Screen Negative Methadone Screen Negative Barbiturate Screen Negative Phencyclidine Screen Negative Ur Amphetamines Screen Negative MDMA (Ecstasy) Screen Negative Benzodiazepines Screen Negative Cocaine Screen Negative U Marijuana (THC) Screen Positive Blood Type Antibody Screen 02/07/18 06:40 WBC RBC Hgb Hct MCV MCH MCHC RDW Plt Count MPV Absolute Neuts (auto) Neutrophils % Lymphocytes % Monocytes % Eosinophils % Basophils % Nucleated RBC % Sodium 141 Potassium 4.2 Chloride 107 Carbon Dioxide 24 Anion Gap 10 BUN 9 Creatinine 0.6 Creat Clearance w eGFR > 60 Random Glucose 97 Calcium 8.5 Phosphorus 4.2 Magnesium 2.0 Total Bilirubin 0.2 AST 14 L ALT 22 Alkaline Phosphatase 66 Creatine Kinase Troponin I Total Protein 6.6 Albumin 3.4 TSH Free T4 Serum , Qual Urine Color Urine Appearance Urine pH Ur Specific [place] Urine Protein Urine Glucose (UA) Urine Ketones Urine Blood Urine Nitrite Urine Bilirubin Urine Urobilinogen Ur Leukocyte Esterase Urine WBC (Auto) Urine RBC (Auto) Ur Epithelial Cells Hyaline Casts Urine Mucus Opiates Screen Methadone Screen Barbiturate Screen Phencyclidine Screen Ur Amphetamines Screen MDMA (Ecstasy) Screen Benzodiazepines Screen Cocaine Screen U Marijuana (THC) Screen Blood Type Antibody Screen Active Medications Generic Name Dose Route Start Last Admin Trade Name Freq PRN Reason Stop Dose Admin Sodium Chloride 1,000 mls @ 100 mls/hr 02/07/18 03:30 02/07/18 04:23 Normal Saline - IV 100 mls/hr ASDIR DUANE Administration ASSESSMENT/PLAN: 27 yof with PMhx of asthma, tobacco use, daily marijuana use, 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 Low suspicion for neurological etiology (Braced hands before falling) -?subclinical hyperthyroidism -Anemia, on IV Iron transfusions, being worked up for thalessemia per patient. -Marihuana use -Asthma, not in exacerbation Plan: Continue IVF. Telemetry with no events. Cardiology input noted. 2D echo. Neurology input noted. Outpatient EEG. Carotid dopper noted. CT brain neg. TSH noted, free T4 noted. Follow up T3. Discussed with Dr. Crawley, unlikely needs treatments discussed, will follow up recs. H/h stable. Dispo likely dc in 24 hours pending above work up if no new concerns. Plan discussed with patient in detail, all questions answered. Visit type - Emergency Visit Emergency Visit: Yes ED Registration Date: 02/07/18 Care time: The patient presented to the Emergency Department on the above date and was hospitalized for further evaluation of their emergent condition. - New Patient This patient is new to me today: Yes Date on this admission: 02/07/18 - Critical Care Critical Care patient: No - Discharge Referral [facility]erred to [facility] No
--- NOTE | 2018-02-07 09:21 | CON.CARD ---
Consult Consult Specialty:: cardio - History of Present Illness Chief Complaint: syncope History of Present Illness: 27 y/o female here for loss of conciousness. was out to restaurant for dinner (no etoh), finished sharing 2-3 appetizers with family members, when suddenly felt like "my entire body was shutting down". and felt heartbeat dramatically slowing down. assctd LH feeling. + witnessed LOC for several seconds per cousins who were with her (per chart notes reviewed). jerking motion of head noted. she denies any cp, sob, palpitations with that. skipped breakfast and lunch yesterday, drank about 54-72 oz water during the day. no caffeine or etoh. 2 weeks ago she had episode of presyncope at the beach where she stood up, felt dizziness and feeling like she was going to pass out. similar prodrome then, no other CV sx's then. prolonged feeling of malaise/"not myself" for 3 days following that. saw PCP at [facility], noted to be anemic--referred to heme for iron infusions. intermittent heart racing (without dizziness) couple of times in recent weeks-- never at time of presyncope or syncope episodes. in ER, VSs unremarkable, not orthostatic. TSH undetectable. Hgb 8.9. test negative PMH: bipolar disorder no HTN, DM, HPL FH: mother "idiopathic cardiomyopathy" s/p ICD at 51; maternal 2nd cousin same, s/p heart transplant - Alcohol/Substance Use Hx Alcohol Use: No - Smoking History Smoking history: Current every day smoker Have you smoked in the past 12 months: Yes Aproximately how many cigarettes per day: 4 Home Medications - Allergies Allergies/Adverse Reactions: Allergies Allergy/AdvReac Type Severity Reaction Status Date / Time No Known Allergies Allergy Verified 02/06/18 22:30 - Home Medications Home Medications: Ambulatory Orders NK [No Known Home Medication] 02/07/18 Review of Systems - Review of Systems Constitutional: denies: Chills, Fever Eyes: denies: Eye Pain HENT: denies: Nasal Congestion Neck: denies: Stiffness Cardiovascular: reports: Palpitations. denies: Edema Respiratory: denies: Orthopnea, PND Gastrointestinal: denies: Diarrhea, Rectal Bleeding Genitourinary: denies: Burning, Hematuria Musculoskeletal: denies: Muscle Pain Integumentary: denies: Rash Neurological: reports: Syncope. denies: Numbness, Seizure Endocrine: denies: Excessive Sweating Hematology/Lymphatic: denies: Excessive Bleeding Vital Signs: Vital Signs Temperature 98.8 F 02/06/18 22:31 Pulse Rate 76 02/07/18 05:48 Respiratory Rate 18 02/07/18 08:22 Blood Pressure 113/67 02/07/18 05:48 O2 Sat by Pulse Oximetry (%) 98 02/07/18 08:22 Constitutional: Yes: No Distress, Obese Eyes: No: Sclera Icterus HENT: No: Nasal Congestion Neck: No: Decreased ROM Respiratory: Yes: CTA Bilaterally. No: Accessory Muscle Use, Rales, Wheezes Gastrointestinal: Yes: Normal Bowel Sounds. No: Distention, Hepatomegaly, Palpable Mass, Tenderness Cardiovascular: Yes: Regular Rate and Rhythm JVD: No Carotid Bruit: No PMI: Non-Displaced Heart Sounds: Yes: S1, S2. No: Gallop Murmur: No: Systolic Murmur, Diastolic Murmur Musculoskeletal: Yes: Other (No kyphosis) Extremities: No: Cool, Cyanosis Edema: No Peripheral Pulses: 2+ Left Carotid, 2+ Right Carotid, 2+ Left Doralis Pedis, 2+ Right Dorsalis Pedis Integumentary: No: Jaundice Neurological: Yes: Alert, Oriented (x3) Psychiatric: No: Agitated - Other Data Labs, Other Data: CBC, BMP 02/07/18 06:40 02/07/18 06:40 Troponin, BNP 02/07/18 00:01 Troponin I < 0.02 Troponin, BNP 02/07/18 00:01 Troponin I < 0.02 Laboratory Tests 02/07/18 02/07/18 02/07/18 00:01 00:01 06:40 WBC 5.7 Hgb 8.9 L Plt Count 246 Sodium Potassium Carbon Dioxide BUN Creatinine AST ALT Troponin I < 0.02 TSH < 0.01 L 02/07/18 06:40 WBC Hgb Plt Count Sodium 141 Potassium 4.2 Carbon Dioxide 24 BUN 9 Creatinine 0.6 AST 14 L ALT 22 Troponin I TSH Assessment/Plan ECG: NSR, normal axis/intervals. no pathological q waves, ST-T abn. no Brugada features or ARVC findings, normal QTc CXR: cardiomegaly, clear lungs/pleura tele: NSR syncope: -both episodes in past 2 weeks occurring in settings common for triggering vasovagal reflex: once at beach, while standing up; once at restaurant after skipping breakfast and lunch that day (i.e. on DOA). feeling of heartbeat slowing down suggests cardioinhibitory vagal reaction. -most likely this was vasovagal triggered by relative vol depletion, ? hyperthyroid contributing, possibly exacerbated by anemia which can sometimes predispose to vasovagal's. -pt with family h/o idiopathic CMP, with large cardiac silhouette on CXR, incr' d vs prior. no signs of chf on cxr or clinically. -will do echo tomorrow: if EF is reduced, will d/w EP ? EP study prior to hospital discharge. -not orthostatic here anemia: -recently started Fe infusions with outpt heme -per hospitalist hyperthyroid: -TSH undetectable here -per hospitalist
[2018-02-07 11:57] LABS: PLATELET ESTIMATE ADEQUATE
[2018-02-07 11:58] LABS: ANISOCYTOSIS 2+
--- NOTE | 2018-02-07 12:35 | CONSULT ---
Consult - text type - Consultation Consultation Note: Neurology CHIEF COMPLAINT: Syncope HISTORY OF PRESENT ILLNESS: 27 y/o female, accompanied by her two cousins, presents after she lost conciousness for 10 seconds. 2 weeks ago, patient had a similar [place] of at the beach where she stood up, felt dizziness and feeling like she was going to pass out although she did not lose consciousness during this episode. For the 3 days that followed this episode, patient did not feel herself and visited her PCP at [facility]. She was found to have anemia and started on Iron Infusions; follows with Dr. Efrain Romano (Hematology). Prior to admission, patient went to dinner at a new restaurant and after eating while sitting upright, she felt her heart slowed down. Her cousins witnessed her slump forward and lose consciousness for 5-10 seconds accompanied by a jerking motion of her head. Of note, Utox positive for MJ. Patient fatigued but no focal deficits. CT head completed and reviewed and without acute changes. Recent Travel: Denies PAST MEDICAL HISTORY: Bipolar disorder Anemia s/p Iron Infusions PAST SURGICAL HISTORY: Denies Social History: Smokin cigarettes daily Alcohol: Social use Drugs: Marijuana 3-4x week Family History: Allergies No Known Allergies Allergy (Verified 02/06/18 22:30) HOME MEDICATIONS: Home Medications Medication Instructions Recorded NK [No Known Home Medication] 02/07/18 REVIEW OF SYSTEMS CONSTITUTIONAL: Absent: fever, chills, diaphoresis, generalized weakness, malaise, loss of appetite, weight change HEENT: Absent: rhinorrhea, nasal congestion, throat pain, throat swelling, difficulty swallowing, mouth swelling, ear pain, eye pain, visual changes CARDIOVASCULAR: Present: syncope, lightheadedness Absent: chest pain, palpitations, irregular heart rate, peripheral edema RESPIRATORY: Absent: cough, shortness of breath, dyspnea with exertion, orthopnea, wheezing, stridor, hemoptysis GASTROINTESTINAL: Absent: abdominal pain, abdominal distension, nausea, vomiting, diarrhea, constipation, melena, hematochezia GENITOURINARY: Absent: dysuria, frequency, urgency, hesitancy, hematuria, flank pain, genital pain MUSCULOSKELETAL: Absent: myalgia, arthralgia, joint swelling, back pain, neck pain SKIN: Absent: rash, itching, pallor HEMATOLOGIC/IMMUNOLOGIC: Absent: easy bleeding, easy bruising, lymphadenopathy, frequent infections ENDOCRINE: Absent: unexplained weight gain, unexplained weight loss, heat intolerance, cold intolerance NEUROLOGIC: Present: dizziness Absent: headache, focal weakness or paresthesias, unsteady gait, seizure, mental status changes, bladder or bowel incontinence PSYCHIATRIC: Absent: anxiety, depression, suicidal or homicidal ideation, hallucinations. PHYSICAL EXAMINATION Vital Signs Temperature 98.8 F 02/06/18 22:31 Pulse Rate 76 02/07/18 05:48 Respiratory Rate 18 02/07/18 08:22 Blood Pressure 113/67 02/07/18 05:48 O2 Sat by Pulse Oximetry (%) 98 02/07/18 08:22 GENERAL: Awake, alert, and fully oriented, in no acute distress. EYES: PERRL, EOMI THROAT: oropharynx clear without exudates. Moist mucous membranes. NECK: No JVD LUNGS: Breath sounds equal, clear to auscultation bilaterally. No wheezes. HEART: Regular rate and rhythm, normal S1 and S2 without murmur. ABDOMEN: Obese, Soft, nontender, not distended, normoactive bowel sounds, no guarding. MUSCULOSKELETAL: Normal range of motion at all joints. No CVA tenderness. EXTREMITIES: 2+ pulses, No peripheral edema. NEUROLOGICAL: Cranial nerves II-XII intact. Normal speech. Normal gait. PSYCHIATRIC: Cooperative. Good eye contact. Appropriate mood and affect. SKIN: Warm, dry, normal turgor, no rashes or lesions noted, normal capillary refill. CBCD WBC 5.7 K/mm3 (4.0-10.0) 02/07/18 06:40 RBC 4.35 M/mm3 (3.60-5.2) 02/07/18 06:40 Hgb 8.9 GM/dL (10.7-15.3) L 02/07/18 06:40 Hct 28.8 % (32.4-45.2) L 02/07/18 06:40 MCV 66.3 fl (80-96) L 02/07/18 06:40 MCHC 30.8 g/dl (32.0-36.0) L 02/07/18 06:40 RDW 24.5 % (11.6-15.6) H 02/07/18 06:40 Plt Count 246 K/MM3 (134-434) 02/07/18 06:40 MPV 9.4 fl (7.5-11.1) 02/07/18 06:40 CMP Sodium 141 mmol/L (136-145) 02/07/18 06:40 Potassium 4.2 mmol/L (3.5-5.1) 02/07/18 06:40 Chloride 107 mmol/L (98-107) 02/07/18 06:40 Carbon Dioxide 24 mmol/L (21-32) 02/07/18 06:40 Anion Gap 10 (8-16) 02/07/18 06:40 BUN 9 mg/dL (7-18) 02/07/18 06:40 Creatinine 0.6 mg/dL (0.55-1.02) 02/07/18 06:40 Creat Clearance w eGFR > 60 (>60) 02/07/18 06:40 Calcium 8.5 mg/dL (8.5-10.1) 02/07/18 06:40 Total Bilirubin 0.2 mg/dL (0.2-1.0) 02/07/18 06:40 AST 14 U/L (15-37) L 02/07/18 06:40 ALT 22 U/L (12-78) 02/07/18 06:40 Alkaline Phosphatase 66 U/L (45-117) 02/07/18 06:40 Total Protein 6.6 g/dl (6.4-8.2) 02/07/18 06:40 Albumin 3.4 g/dl (3.4-5.0) 02/07/18 06:40 CT head reviewed ASSESSMENT/PLAN: 27 y/o female, accompanied by her two cousins, presents after she lost conciousness for 10 seconds. 2 weeks ago, patient had a similar episode of at the beach where she stood up, felt dizziness and feeling like she was going to pass out although she did not lose consciousness during this episode. For the 3 days that followed this episode, patient did not feel herself and visited her PCP at [facility]. She was found to have anemia and started on Iron Infusions; follows with Dr. Efrain Romano (Hematology). Prior to admission, patient went to dinner at a new restaurant and after eating while sitting upright, she felt her heart slowed down. Her cousins witnessed her slump forward and lose consciousness for 5-10 seconds accompanied by a jerking motion of her head. Of note, Utox positive for MJ. Patient fatigued but no focal deficits. CT head completed and reviewed and without acute changes. Neurologically stable, continue tele. Can have outpatient EEG. Carotid doppler completed, awaiting offical report. Maintain hydration, avoid sudden head movements. Check orthostatics. Optimize hyperthyroidism. Discussed with primary.
--- NOTE | 2018-02-07 16:52 | CONSULT ---
Consult Consult Specialty:: Endocrinology Referred by:: Dr Spence Reason for Consultation:: Abnormal TFT - History of Present Illness Chief Complaint: Syncope History of Present Illness: This is a27 y/o female, accompanied by her two cousins, presented to ED after she lost conciousness for about 5-10 seconds in a restaurant where she went of dinnr. According to cousin who was with the patient during the episode, pt has jerking movement of head and upward rolling eyes with LOC. No movement of limbs or tongue biting. 2 weeks ago, patient had an episode of at the beach where she stood up, felt dizziness and felt like she was going to pass out. She felt better after sitting down. She has lost around 60 lbs in the last 5 months by dieting. She was found to have anemia by her PCP and started on Iron Infusions; follows with Dr. Efrain Romano (Hematology). . Patient did not have any alcohol at dinner this evening. This is the 1st time she has lost consciousness. No recent medication changes, no changes in PO intake. Her LMP ended 3 days ago. Denies any hx of seizures, anxiety, panic attacks or previous syncopal episodes. Denies any loss of bowel or bladder control. Denies chest pain, Palpitations, chest tightness, nausea, vomiting, diarrhea. Says she always feels warm and sweaty. - Alcohol/Substance Use Hx Alcohol Use: No - Smoking History Smoking history: Current every day smoker Have you smoked in the past 12 months: Yes Aproximately how many cigarettes per day: 4 Home Medications - Allergies Allergies/Adverse Reactions: Allergies Allergy/AdvReac Type Severity Reaction Status Date / Time No Known Allergies Allergy Verified 02/06/18 22:30 - Home Medications Home Medications: Ambulatory Orders NK [No Known Home Medication] 02/07/18 Family Disease History - Family Disease History Other Family History: Aunt has hypothyroidism Review of Systems - Review of Systems Constitutional: reports: No Symptoms Eyes: reports: No Symptoms HENT: reports: No Symptoms Neck: reports: No Symptoms Cardiovascular: reports: No Symptoms Respiratory: reports: No Symptoms Gastrointestinal: reports: No Symptoms Genitourinary: reports: No Symptoms Breasts: reports: No Symptoms Reported Musculoskeletal: reports: No Symptoms Integumentary: reports: No Symptoms Neurological: reports: No Symptoms Endocrine: reports: No Symptoms Hematology/Lymphatic: reports: No Symptoms Physical Exam Vital Signs: Vital Signs Temperature 98.1 F 02/07/18 14:00 Pulse Rate 75 02/07/18 14:00 Respiratory Rate 18 02/07/18 11:00 Blood Pressure 145/87 02/07/18 14:00 O2 Sat by Pulse Oximetry (%) 98 02/07/18 08:22 Constitutional: Yes: No Distress, Calm Eyes: Yes: Conjunctiva Clear, EOM Intact HENT: Yes: Atraumatic, Normocephalic Neck: Yes: Supple, Trachea Midline Cardiovascular: Yes: Regular Rate and Rhythm Respiratory: Yes: Regular, CTA Bilaterally Gastrointestinal: Yes: Normal Bowel Sounds, Soft Musculoskeletal: Yes: WNL Extremities: Yes: WNL Edema: No Neurological: Yes: Alert, Oriented Labs: CBC, BMP 02/07/18 06:40 02/07/18 06:40 Assessment/Plan AP: Syncope Obesity Bipolar disorder: off meds for a year Abnormal TFT: Subclinical Hyperthyroidism vs Eutyroid sick syndrome Gastroparesis/Nausea TSH <0.01, FT4 1.46 FT3 Pending Repeat TFT with TPO, TSI Urine positive for Marijuana Syncope very unlikely to be related to the thyroid hormone abnormality If repeat TFT is abnormal, will get Thyroid uptake scan as outpt r/o thyroiditis as cause of abnormal TFT Recently treated for H Pylori by GI Wt loss of 60 lbs in about 5 months with just diet. ? Sec decreased food intake b/o Gastroparesis Will F/u
--- NOTE | 2018-02-07 19:18 | EKG ---
Test Reason : Blood Pressure : / mmHG Vent. Rate : 088 BPM Atrial Rate : 088 BPM P-R Int : 178 ms QRS Dur : 096 ms QT Int : 384 ms P-R-T Axes : 056 046 039 degrees QTc Int : 464 ms NORMAL SINUS RHYTHM POSSIBLE LEFT ATRIAL ENLARGEMENT BORDERLINE ECG WHEN COMPARED WITH ECG OF 30-JAN-2011 16:37, NO SIGNIFICANT CHANGE WAS FOUND Confirmed by MD LEONID, STEPHANE ([id number]) on 02/07/2018 7:17:54 PM Referred By: Confirmed By:STEPHANE JAQUEZ MD
[2018-02-07] MEDS ORDERED: ACETAMINOPHEN 325 MG TABLET (FP) PO PRN (22:38)
--- NOTE | 2018-02-08 07:51 | PN ---
Teaching Attending Note Name of Resident: Skye Li ATTENDING PHYSICIAN STATEMENT I saw and evaluated the patient. I reviewed the resident's note and discussed the case with the resident. I agree with the resident's findings and plan as documented with exceptions below. SUBJECTIVE: Patient seen and examined. headache, but no further symptoms overnight. OBJECTIVE: Vital Signs Period Temp Pulse Resp BP Sys/Hess Pulse Ox Last 24 Hr 97.3 F-98.7 F 64-75 18-18 119-145/63-89 98-98 General: sitting in bed in no acute distress Telemetry Dropped beats occasional at nighttime (corelated with sleeping). 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 Low suspicion for neurological etiology (Braced hands before falling) -?subclinical hyperthyroidism -Anemia, on IV Iron transfusions, being worked up for thalessemia per patient. -Marihuana use -Asthma, not in exacerbation Plan: no further events. 2D echo noted. Occasional dropped beats during sleep. Discussed with Dr. Hector, suspect physiology Advised outpatient sleep study to r/o underlying MILA. Neurology input noted. Outpatient EEG. Carotid dopper noted. CT brain neg. Endocrine input noted, T3/TPO/TSI pending, H/h stable. Dispo Plan discussed with patient in detail, all questions answered.
[2018-02-08 07:59] LABS: BASO % 0.4 % (0-2.0); EOS % 5.7 % (0-4.5); HEMATOCRIT 29.4 % (32.4-45.2); HEMOGLOBIN 9.1 GM/dL (10.7-15.3); LYMPH % 35.1 % (8-40); MCH 20.7 pg (25.7-33.7); MEAN CELL VOLUME 66.8 fl (80-96); MONO % 7.5 % (3.8-10.2); NEUT % 51.3 % (42.8-82.8); PLATELET COUNT 242 K/MM3 (134-434); RBC 4.41 M/mm3 (3.60-5.2); RDW 25.2 % (11.6-15.6); WHITE BLOOD COUNT 4.8 K/mm3 (4.0-10.0)
[2018-02-08 08:05] LABS: ANION GAP 10 (8-16); BLOOD UREA NITROGEN 10 mg/dL (7-18); CALCIUM 8.6 mg/dL (8.5-10.1); CHLORIDE 107 mmol/L (98-107); CO2 26 mmol/L (21-32); CREATININE 0.6 mg/dL (0.55-1.02); GLUCOSE,RANDOM 90 mg/dL (74-106); PHOSPHOROUS 4.9 mg/dL (2.5-4.9); POTASSIUM 4.2 mmol/L (3.5-5.1); SODIUM 143 mmol/L (136-145)
--- NOTE | 2018-02-08 09:13 | PN ---
Progress Note (short form) - Note Progress Note: Neurology CHIEF COMPLAINT: Syncope HISTORY OF PRESENT ILLNESS: 27 y/o female, accompanied by her two cousins, presents after she lost conciousness for 10 seconds. 2 weeks ago, patient had a similar episode of at the beach where she stood up, felt dizziness and feeling like she was going to pass out although she did not lose consciousness during this episode. For the 3 days that followed this episode, patient did not feel herself and visited her PCP at [facility]. She was found to have anemia and started on Iron Infusions; follows with Dr. Efrain Romano (Hematology). Prior to admission, patient went to dinner at a new restaurant and after eating while sitting upright, she felt her heart slowed down. Her cousins witnessed her slump forward and lose consciousness for 5-10 seconds accompanied by a jerking motion of her head. Of note, Utox positive for MJ. Patient fatigued but no focal deficits. CT head completed and reviewed and without acute changes. Slight headache this AM, getting ongoing cardiac workup. Carotids reviewed, no evidence of high grade stenosis. Spoke with primary, neurologically otherwise stable. Active Medications Acetaminophen (Tylenol -) 650 mg PO Q6H PRN PRN Reason: Fever Last Admin: 02/07/18 22:47 Dose: 650 mg Sodium Chloride (Normal Saline -) 1,000 mls @ 100 mls/hr IV ASDIR DUANE Last Admin: 02/07/18 04:23 Dose: 100 mls/hr PHYSICAL EXAMINATION Vital Signs Period Temp Pulse Resp BP Sys/Hess Pulse Ox Last 24 Hr 97.3 F-98.7 F 64-75 18-18 119-145/63-89 98-99 GENERAL: Awake, alert, and fully oriented, in no acute distress. EYES: PERRL, EOMI THROAT: oropharynx clear without exudates. Moist mucous membranes. NECK: No JVD LUNGS: Breath sounds equal, clear to auscultation bilaterally. No wheezes. HEART: Regular rate and rhythm, normal S1 and S2 without murmur. ABDOMEN: Obese, Soft, nontender, not distended, normoactive bowel sounds, no guarding. MUSCULOSKELETAL: Normal range of motion at all joints. No CVA tenderness. EXTREMITIES: 2+ pulses, No peripheral edema. NEUROLOGICAL: Cranial nerves II-XII intact. Normal speech. Normal gait. PSYCHIATRIC: Cooperative. Good eye contact. Appropriate mood and affect. SKIN: Warm, dry, normal turgor, no rashes or lesions noted, normal capillary refill. CBCD WBC 4.8 K/mm3 (4.0-10.0) 02/08/18 06:30 RBC 4.41 M/mm3 (3.60-5.2) 02/08/18 06:30 Hgb 9.1 GM/dL (10.7-15.3) L 02/08/18 06:30 Hct 29.4 % (32.4-45.2) L 02/08/18 06:30 MCV 66.8 fl (80-96) L 02/08/18 06:30 MCHC 31.0 g/dl (32.0-36.0) L 02/08/18 06:30 RDW 25.2 % (11.6-15.6) H 02/08/18 06:30 Plt Count 242 K/MM3 (134-434) 02/08/18 06:30 MPV 9.0 fl (7.5-11.1) 02/08/18 06:30 CMP Sodium 143 mmol/L (136-145) 02/08/18 06:30 Potassium 4.2 mmol/L (3.5-5.1) 02/08/18 06:30 Chloride 107 mmol/L (98-107) 02/08/18 06:30 Carbon Dioxide 26 mmol/L (21-32) 02/08/18 06:30 Anion Gap 10 (8-16) 02/08/18 06:30 BUN 10 mg/dL (7-18) 02/08/18 06:30 Creatinine 0.6 mg/dL (0.55-1.02) 02/08/18 06:30 Creat Clearance w eGFR > 60 (>60) 02/08/18 06:30 Random Glucose 90 mg/dL (74-106) 02/08/18 06:30 Calcium 8.6 mg/dL (8.5-10.1) 02/08/18 06:30 Total Bilirubin 0.2 mg/dL (0.2-1.0) 02/07/18 06:40 AST 14 U/L (15-37) L 02/07/18 06:40 ALT 22 U/L (12-78) 02/07/18 06:40 Alkaline Phosphatase 66 U/L (45-117) 02/07/18 06:40 Total Protein 6.6 g/dl (6.4-8.2) 02/07/18 06:40 Albumin 3.4 g/dl (3.4-5.0) 02/07/18 06:40 CARDIAC ENZYMES Creatine Kinase 66 IU/L (26-192) 02/07/18 00:01 Troponin I < 0.02 ng/ml (0.00-0.05) 02/07/18 00:01 CT head reviewed ASSESSMENT/PLAN: 27 y/o female, accompanied by her two cousins, presents after she lost conciousness for 10 seconds. 2 weeks ago, patient had a similar episode of at the beach where she stood up, felt dizziness and feeling like she was going to pass out although she did not lose consciousness during this episode. For the 3 days that followed this episode, patient did not feel herself and visited her PCP at [facility]. She was found to have anemia and started on Iron Infusions; follows with Dr. Efrain Romano (Hematology). Prior to admission, patient went to dinner at a new restaurant and after eating while sitting upright, she felt her heart slowed down. Her cousins witnessed her slump forward and lose consciousness for 5-10 seconds accompanied by a jerking motion of her head. Of note, Utox positive for MJ. Patient fatigued but no focal deficits. CT head completed and reviewed and without acute changes. Neurologically stable, continue tele. Can have outpatient EEG. Carotid doppler completed, reviewed and discussed. Maintain hydration, avoid sudden head movements. Check orthostatics. Optimize hyperthyroidism. Discussed with primary. Can follow up as outpatient.
--- NOTE | 2018-02-08 09:52 | PN ---
Progress Note, Physician Chief Complaint: syncope History of Present Illness: tired/fatigued, mild ZAPATA. no palpitations, heart slowing feeling. no pre/syncope. no cp, sob - Current Medication List Current Medications: Active Medications Acetaminophen (Tylenol -) 650 mg PO Q6H PRN PRN Reason: Fever Last Admin: 02/07/18 22:47 Dose: 650 mg Sodium Chloride (Normal Saline -) 1,000 mls @ 100 mls/hr IV ASDIR DUANE Last Admin: 02/07/18 04:23 Dose: 100 mls/hr - Objective Vital Signs: Vital Signs Temperature 97.6 F 02/08/18 05:00 Pulse Rate 64 02/08/18 05:00 Respiratory Rate 18 02/08/18 08:57 Blood Pressure 129/76 02/08/18 05:00 O2 Sat by Pulse Oximetry (%) 99 02/08/18 08:57 Constitutional: Yes: No Distress, Calm, Obese Cardiovascular: Yes: Regular Rate and Rhythm, S1, S2. No: Gallop, Murmur Respiratory: Yes: Regular, CTA Bilaterally. No: Accessory Muscle Use, Rales, Wheezes Extremities: No: Cold Edema: No Neurological: Yes: Alert, Oriented. No: Seizure Psychiatric: No: Agitated Labs: CBC, BMP 02/08/18 06:30 02/08/18 06:30 Assessment/Plan ECG: NSR, normal axis/intervals. no pathological q waves, ST-T abn. no Brugada features or ARVC findings, normal QTc CXR: cardiomegaly, clear lungs/pleura carotids: no plaque, normal velocities tele: NSR, no events syncope: -both episodes in past 2 weeks occurring in settings common for triggering vasovagal reflex: once at beach, while standing up; once at restaurant after skipping breakfast and lunch that day (i.e. on DOA). feeling of heartbeat slowing down suggests cardioinhibitory vagal reaction. -most likely this was vasovagal triggered by relative vol depletion, ? hyperthyroid contributing, possibly exacerbated by anemia which can sometimes predispose to vasovagal's. -pt with family h/o idiopathic CMP, with large cardiac silhouette on CXR, incr' d vs prior. no signs of chf on cxr or clinically. -f/u echo (done today): if EF is reduced, will d/w EP ? EP study prior to hospital discharge. if echo normal, ok for d/c with outpt f/u regarding ? genetic testing of mother and cascade family member testing. -defer fludrocortisone, midodrine--rec push po fluids more (100 oz daily target) -not orthostatic here anemia: -recently started Fe infusions with outpt heme -per hospitalist hyperthyroid: -TSH undetectable here -per endocrine (dr catalan following)
--- NOTE | 2018-02-08 11:09 | PN ---
Progress Note (short form) - Note Progress Note: C/o slight headache No palpitations Vital Signs Period Temp Pulse Resp BP Sys/Hess Pulse Ox Last 24 Hr 97.3 F-98.7 F 64-75 18-18 119-145/63-89 98-99 PE: AOx3 Neck: Supple HEENT: PERRL, EOMI Lungs: CTA CVs: S1S2 Abd: Benign Ext: No edema Neuro: No focal deficit CMP Sodium 143 mmol/L (136-145) 02/08/18 06:30 Potassium 4.2 mmol/L (3.5-5.1) 02/08/18 06:30 Chloride 107 mmol/L (98-107) 02/08/18 06:30 Carbon Dioxide 26 mmol/L (21-32) 02/08/18 06:30 Anion Gap 10 (8-16) 02/08/18 06:30 BUN 10 mg/dL (7-18) 02/08/18 06:30 Creatinine 0.6 mg/dL (0.55-1.02) 02/08/18 06:30 Creat Clearance w eGFR > 60 (>60) 02/08/18 06:30 Random Glucose 90 mg/dL (74-106) 02/08/18 06:30 Calcium 8.6 mg/dL (8.5-10.1) 02/08/18 06:30 Phosphorus 4.9 mg/dL (2.5-4.9) 02/08/18 06:30 Magnesium 2.0 mg/dL (1.8-2.4) 02/08/18 06:30 Total Bilirubin 0.2 mg/dL (0.2-1.0) 02/07/18 06:40 AST 14 U/L (15-37) L 02/07/18 06:40 ALT 22 U/L (12-78) 02/07/18 06:40 Alkaline Phosphatase 66 U/L (45-117) 02/07/18 06:40 Creatine Kinase 66 IU/L (26-192) 02/07/18 00:01 Troponin I < 0.02 ng/ml (0.00-0.05) 02/07/18 00:01 Total Protein 6.6 g/dl (6.4-8.2) 02/07/18 06:40 Albumin 3.4 g/dl (3.4-5.0) 02/07/18 06:40 TSH < 0.01 uIU/ml (0.358-3.74) L 02/08/18 06:30 Free T4 1.25 ng/dl (0.76-1.46) 02/08/18 06:30 Serum , Qual Negative 02/07/18 00:01 Current Medications Generic Name Dose Route Start Last Admin Trade Name Freq PRN Reason Stop Dose Admin Acetaminophen 650 mg 02/07/18 22:38 02/07/18 22:47 Tylenol - PO 650 mg Q6H PRN Administration Fever Sodium Chloride 1,000 mls @ 100 mls/hr 02/07/18 03:30 02/07/18 04:23 Normal Saline - IV 100 mls/hr ASDIR DUANE Administration AP: Syncope: ? Vasovagal. Cardilogy note reviewed Obesity Bipolar disorder: off meds for a year Abnormal TFT: Subclinical Hyperthyroidism vs Eutyroid sick syndrome vs Thyroiditis Gastroparesis/Nausea TSH <0.01, FT4 1.46 FT3 Pending Rpt TFT today TSH <0.01 FT4 1.25 FT3 pending TPO, TSI pending Urine positive for Marijuana Syncope very unlikely to be related to the thyroid hormone abnormality. The second episode of syncope happened while pt was seated. If repeat FT3 is high, will start treatment with Methimazole 5mg QD. Will get Thyroid uptake scan as outpt to r/o thyroiditis vs Grave's Vs toxic nodule.as cause of abnormal TFT Recently treated for H Pylori by GI Wt loss of 60 lbs in about 5 months with just diet. ? Sec decreased food intake b/o Gastroparesis Will F/u
--- NOTE | 2018-02-08 11:23 | ECHO ---
Name: ISAC LEONORA Exam:Adult Echocardiogram Study Date: 02/08/2018 09:01 AM Age: 27 yrs Reason For Study: SYNCOPE Height: 66 in Weight: 285 lb BSA: 2.3 m2 MMode/2D Measurements & Calculations IVSd: 1.0 cm Ao root diam: 3.3 cm LVIDd: 5.1 cm LA dimension: 3.6 cm LVIDs: 3.1 cm LVPWd: 1.1 cm EDV(Teich): 122.5 ml ESV(Teich): 38.1 ml Doppler Measurements & Calculations MV E max vasyl: 92.3 cm/sec PI end-d vasyl: 113.3 cm/sec MV A max vasyl: 67.6 cm/sec MV E/A: 1.4 MV dec time: 0.25 sec Med Peak E' Vasyl: 10.6 cm/sec Med E/e': 8.7 Lat Peak E' Vasyl: 7.5 cm/sec Lat E/e': 12.3 Procedure The study was technically limited with all images being suboptimal in quality. Left Ventricle The left ventricular size, thickness and function are normal. The transmitral spectral Doppler flow p attern is normal for age. Right Ventricle The right ventricle is normal in size and function. Atria The left atrial size is normal. Right atrium not well visualized. Mitral Valve The mitral valve is normal in structure and function. There is no evidence of mitral valve prolapse. There is trace mitral regurgitation. Tricuspid Valve The tricuspid valve is not well visualized. There is Trace to mild tricuspid regurgitation. There was insufficient TR detected to calculate RV systolic pressure. Aortic Valve The aortic valve is normal in structure and function. The aortic valve opens well. No aortic regurgit ation is present. Pulmonic Valve The pulmonic valve is not well visualized. Mild pulmonic valvular regurgitation. Great Vessels The aortic root is normal size. Pericardium/Pleura There is no pericardial effusion. Interpretation Summary There is no comparison study available. The left ventricular size, thickness and function are normal The right ventricle is normal in size and function. There is trace mitral regurgitation. There is Trace to mild tricuspid regurgitation. Mild pulmonic valvular regurgitation. The transmitral spectral Doppler flow pattern is normal for age. Jong Coronado MD 02/08/2018 11:22 AM
--- NOTE | 2018-02-08 14:58 | DS ---
Physical Exam: SUBJECTIVE: Patient seen and examined at bedside. No New complaints. No over night events. Denies fevers, chills, chest pain, SOB, nausea, vomiting, diarrhea, constipation. OBJECTIVE: Vital Signs Period Temp Pulse Resp BP Sys/Hess Pulse Ox Last 24 Hr 97.3 F-98.7 F 64-85 18-18 119-129/63-89 98-99 PHYSICAL EXAM GENERAL: Awake, alert, and fully oriented, in no acute distress. EYES: PERRL, EOMI THROAT: Oropharynx clear without exudates. Moist mucous membranes. NECK: No JVD LUNGS: Breath sounds equal, clear to auscultation bilaterally. No wheezes. HEART: Regular rate and rhythm, normal S1 and S2 without murmur. ABDOMEN: Obese, Soft, nontender, not distended, normoactive bowel sounds, no guarding. EXTREMITIES: 2+ pulses, No peripheral edema. SKIN: Warm, dry, no rashes or lesions noted. LABS Laboratory Results - last 24 hr 02/08/18 02/08/18 02/08/18 06:30 06:30 06:30 WBC 4.8 RBC 4.41 Hgb 9.1 L Hct 29.4 L MCV 66.8 L MCH 20.7 L MCHC 31.0 L RDW 25.2 H Plt Count 242 MPV 9.0 Absolute Neuts (auto) 2.5 Neutrophils % 51.3 Lymphocytes % 35.1 Monocytes % 7.5 Eosinophils % 5.7 H Basophils % 0.4 Nucleated RBC % 0 Sodium 143 Potassium 4.2 Chloride 107 Carbon Dioxide 26 Anion Gap 10 BUN 10 Creatinine 0.6 Creat Clearance w eGFR > 60 Random Glucose 90 Calcium 8.6 Phosphorus 4.9 Magnesium 2.0 TSH < 0.01 L Free T4 1.25 IMAGING: - Pelvic/Bladder Ultrasound: Prominent/elongated uterus that appears otherwise unremarkable with normal thickness of the endometrial stripe. Both ovaries appear unremarkable. - CXR: Large heart. No acute chest pathology. - Head CT: Negative exam. No discrete noncontrast CT pathology is identified. There has been no definite interval change in comparison to a prior CT exam of . - US Carotid Doppler: No Doppler evidence of a high-grade carotid artery stenosis. - EKG: NORMAL SINUS RHYTHM, POSSIBLE LEFT ATRIAL ENLARGEMENT - ECHO: LV Size, thickness, and functiona re normal. RV is normal in size and function. Trace MR, Trace to mild TR, Mild pulmonic valvular regurgitation HOSPITAL COURSE: Date of Admission:02/07/18 Date of Discharge: 02/08/18 Patient was observed in Telemetry after having a 2nd syncopal episode at dinner that was accompanied by LOC. Incidentally, she was found to have a decreased TSH. Cardiology, Neurology, Endocrinology were all consulted. Imaging including Head CT, Carotid doppler, Echo were done as noted. Patient was treated with Normal saline. It was recommended she have an out patient EEG and Sleep Study. It was generally felt that the syncopal episode was unrelated to the TSH level. Her Vitals remained stabled and patient was discharged home. She was advised to follow up with cardiology (to discuss a possible holter monitor and sleep study) , Neurology (For EEF) and Endocrinology (for lab tests, thyroid scan and possibly starting medication). Upon discharge she was also advised to stay hydrated and for marijuana cessation. Minutes to complete discharge: 35 Discharge Summary Reason For Visit: HYPERTHYRODISM Current Active Problems Hyperthyroidism (Acute) Syncope (Acute) Condition: Stable - Instructions Diet, Activity, Other Instructions: You presented to the hospital after you had an episode of loss of consciousness. An EKG was done that found nonspecific changes. A Head CT, Carotid doppler and Echocardiogram were all negative. Outpatient follow up with cardiology Dr. Hector, discuss Holter monitor and further plan then. Advise outpatient sleep study to address underlying sleep apnea. You will need to have an EEG (nerve stimulation test) done as an outpatient. Please follow up neurology (Dr. Yu) to schedule this. You were hydrated and symptoms improved. Please continue to hydrate yourself at home, drinking plenty of fluids (ideally >100 ounces). One of your Thyroid lab tests was very low. Following thyroid tests are pending: T3 Thyroid stimulating Immunoglobulin Thyroid peroxidase Antibody. Please follow up with Endocrinology (Dr. Crawley) to further manage this and for the results of this blood test. You may need to start a medication or have a Thyroid uptake scan done. You may also need to have blood work done to remeasure these levels. Strongly advise marihuana cessation. Drink plenty of fluids Avoid driving, operating heavy machinery, and being on heights or in water or with children alone till seen by your doctor and further tests completed. Call 911 or Return to the ED if you experience any worrisome symptoms especially weakness, dizziness, blurry vision, fevers, palpitations, chest pain , shortness of breath. Referrals: Noah Hector MD [Staff Physician] - Jose Armando Chambers MD [Primary Care Provider] - Francisco Ortiz MD [Staff Physician] - Alexi Crawley MD [Staff Physician] - Disposition: HOME - Home Medications Comprehensive Discharge Medication List: Ambulatory Orders NK [No Known Home Medication] 02/07/18 This patient is new to me today: Yes Date on this admission: 02/12/18 Emergency Visit: Yes ED Registration Date: 02/07/18 Care time: The patient presented to the Emergency Department on the above date and was hospitalized for further evaluation of their emergent condition. Critical Care patient: No - Discharge Referral Referred to [facility] Med P.C.: No
[2018-02-08 18:17] VITALS: BP 134/83; PULSE 74; TEMP 98.5
[2018-02-10 08:07] LABS: THYROID STIM IMMUNOGLOBULIN 1.14 IU/L (0.00-0.55)
== END 2018-02-08 18:19 | disposition home or self-care (01) | DRG 644 ==
LOC: JER 22:12 → JERBED 02-07 02:13 → J4W 02-07 06:46
PROVIDERS: ADMIT Internal Medicine; ATTEND Hospitalist
DX: E05.90 Thyrotoxicosis, unspecified without thyrotoxic crisis or storm (principal); Z68.41 Body mass index [BMI] 40.0-44.9, adult; R55 Syncope and collapse; F31.9 Bipolar disorder, unspecified; D64.9 Anemia, unspecified; E66.9 Obesity, unspecified; K31.84 Gastroparesis; F17.210 Nicotine dependence, cigarettes, uncomplicated
CPT/HCPCS: 36415; 70450-TC; 71045-TC-FY; 80048; 80053; 80307; 81003; 81015; 82550; 83735; 84100; 84439; 84443; 84445; 84481; 84484; 84703; 85025; 85027; 86376; 86850; 86900; 86901; 93005; 93010; 93306-TC; 93880-TC; 99285-25; J7030

== ENCOUNTER 2019-01-26 18:12 | Emergency (ER) | payer SELFPAY, OTHER | END 2019-01-26 19:03 | disposition home or self-care (01) | LOC: FER 18:12 ==

== ENCOUNTER 2020-04-06 10:33 | Inpatient (IN) | payer OTHER ==
[2020-04-06 10:51] VITALS: BMI 34.7
--- NOTE | 2020-04-06 11:13 | PDOC ---
History of Present Illness - General Chief Complaint: Palpitations Stated Complaint: HEADACHE/DIZZINESS - History of Present Illness Initial Comments: 04/06/20 11:13 HPI: This is a 29 y/o female with a PMH of anemia, bipolar, hyperthyroid presenting to the ED complaining of one week of progressive palpitations with exertion, lig htheadedness, SOB and generalized weakness. She has a history of heavy menstrual periods, and just finished a 13 day heavy period on the 25 of march which is not usual for her. Periods usually last 5-6 days. She denies a history of needing blood transfusions, however she has previously needed iron transfusions. She went to a new primary care provider yesterday who [facility] and told her she would need to come into the hospital for a blood transfusion. Lab results from that visit are pending. She denies chest pain, syncope, cough, fever/chills, blood in stool, current vaginal bleeding. Patient endorses mild headache with nausea. ROS: GENERAL/CONSTITUTIONAL: No fever/chills, diaphoresis. Yes generalized weakness. HEENT: No change in vision. No ear pain. No sore throat. CARDIOVASCULAR: No chest pain, peripheral edema. Admits to palpitations. RESPIRATORY: Admits to mild SOB with exertion cough, wheezing, or hemoptysis. GASTROINTESTINAL: No abdominal pain, vomiting, diarrhea or constipation. Admits to nausea GENITOURINARY: No dysuria, frequency, or change in urination. MUSCULOSKELETAL: No joint or muscle swelling or pain. SKIN: No rash or hives NEUROLOGIC: Admits to headache. Denies vertigo, focal weakness, loss of consciousness, or change in strength/sensation. ENDOCRINE: No increased thirst. No unexplained weight loss. HEMATOLOGIC/LYMPHATIC: Yes anemia w/ hx of iron transfusions, easy bleeding, or history of blood clots. PMH: anemia, bipolar, hyperthyroid PSx: Denied Social Hx: Occasional etoh, marijuana. Quit smoking 2 months ago and vaping 2 weeks ago. Meds: See nurse note Allergies: See nurse note PE: GENERAL: Awake, alert, and fully oriented, in no acute distress. Patient is appropriately conversational. Laying in bed on her phone, non-toxic in appearance. HEENT: Normocephalic, atraumatic. PERRLA, EOMI. Moist mucous membranes. Conjunctival pallor. NECK: Normal ROM and supple. No lymphadenopathy, JVD, or masses. Thyroid is not palpable. CARDIOVASCULAR: Regular rate and rhythm, normal S1 and S2, no murmurs, rubs or gallops. Capillary refill < 3 seconds. PULMONARY: No respiratory distress. Breath sounds equal, clear to auscultation bilaterally. No wheezes, rales or rhonchi. ABDOMEN: Soft, nontender, normoactive bowel sounds. No guarding, no rebound. No masses EXTREMITIES: Normal range of motion, no edema or erythema, no calf tenderness. No clubbing or cyanosis. NEUROLOGICAL: Cranial nerves II through XII grossly intact. Normal speech, normal gait SKIN: Warm, Dry, normal turgor, no rashes or lesions noted. Normal capillary refill. PSYCHIATRIC: Appropriate affect. Cooperative. MDM: 04/06/20 11:38 This is a 29 y/o female with a PMH of anemia, bipolar, hyperthyroid presenting to the ED complaining of one week of progressive palpitations, lightheadedness, SOB and generalized weakness. - Patient is non-toxic in appearance. - Just completed a heavy period on the . Hx of anemia - Periodic tachycardic during ED visit, hemodynamically stable - EKG with no ST elevations or T wave inversions Plan: CBC, CMP, type and screen, pt/inr Serum preg, TSH, Free t4, magnesium, FOBT CXR, EKG, Reglan for headache and nausea 04/06/20 12:[address] elevations or T wave inversions Sinus rhythm. Vent rate 81bpm QRS 82ms, QT/QTc 372/432 04/06/20 12:51 CXR: No acute pathology 04/06/20 13:10 - Hemoglobin 5.1 - will transfuse 2 units - TSH, T4 WNL - FOBT negative - Anemia is most likely due to heavy menstrual cycles, however patient is denying that she is currently having vaginal bleeding. - Patient remained hemodynamically stable throughout ED visit 04/06/20 14:38 - Microblogged - Patient admitted med/surg Past History - Medical History Allergies/Adverse Reactions: Allergies Allergy/AdvReac Type Severity Reaction Status Date / Time No Known Allergies Allergy Verified 04/06/20 10:45 Home Medications: Ambulatory Orders NK [No Known Home Medication] 04/06/20 Anemia: No Asthma: Yes Cancer: No Cardiac Disorders: No CVA: No COPD: No Psychiatric Problems: Yes (BI-POLAR) - Surgical History Abdominal Surgery: No Appendectomy: No Cardiac Surgery: No Cholecystectomy: No - Reproductive History Is Patient Now?: No - Immunization History Immunization Up to Date: Yes - Psycho-Social/Smoking History Smoking Status: No Smoking History: Current some day smoker Have you smoked in the past 12 months: Yes Number of Cigarettes Smoked Daily: 1 Information on smoking cessation initiated: Yes - Substance Abuse Hx (Audit-C & DAST Scrn) How often the patient has a drink containing alcohol: Monthly or less Number of drinks the patient has on a typical day: 1 or 2 How often the patient has six or more drinks on one occasion: Never Score: In Men: 4 or > Positive; In Women: 3 or > Positive: 1 Screen Result (Pos requires Nsg. Audit-10AR): Negative In the last yr the pt used illegal drug/Rx for NonMed reason: No Score: Yes response is considered Positive: 0 Screen Result (Positive result requires Nsg. DAST-10): Negative *Physical Exam - Vital Signs Last Vital Signs Temp Pulse Resp BP Pulse Ox 99.1 F 90 18 117/71 100 04/06/20 10:46 04/06/20 10:46 04/06/20 10:46 04/06/20 10:46 04/06/20 10:46 ED Treatment Course - LABORATORY CBC & Chemistry Diagram: 04/06/20 12:11 04/06/20 12:03 Discharge - Discharge Information Problems reviewed: Yes Clinical Impression/Diagnosis: Anemia Qualifiers: Anemia type: iron deficiency Iron deficiency anemia type: unspecified iron deficiency Qualified Code(s): D50.9 - Iron deficiency anemia, unspecified - Follow up/Referral - Patient Discharge Instructions - Post Discharge Activity
--- OUTSIDE RECORDS SUMMARY | 2020-04-06 11:27 | XMS ---
:1990 Author Organization [facility] Care Team Providers Name Role Phone ZEESHANBARRYJARRET Unavailable Unavailable Candida Woody DO Unavailable Unavailable Juan Clifford PA-C Unavailable Unavailable Re-disclosure Warning The records that you are about to access may contain information from federally- assisted alcohol or drug abuse programs. If such information is present, then the following federally mandated warning applies: This information has been disclosed to you from records protected by federal confidentiality rules (42 CFR part 2). The federal rules prohibit you from making any further disclosure of this information unless further disclosure is expressly permitted by the written consent of the person to whom it pertains or as otherwise permitted by 42 CFR part 2. A general authorization for the release of medical or other information is NOT sufficient for this purpose. The Federal rules restrict any use of the information to criminally investigate or prosecute any alcohol or drug abuse patient.The records that you are about to access may contain highly sensitive health information, the redisclosure of which is protected by Article 27-F of the [facility] Public Health law. If you continue you may haveaccess to information: Regarding HIV / AIDS; Provided by facilities licensed or operated by the [facility] Office of Mental Health; or Provided by the [facility] Office for People With Developmental Disabilities. If such information is present, then the following [facility] mandated warning applies: This information has been disclosed to you from confidential records which are protected by state law. State law prohibits you from making any further disclosure of this information without the specific written consent of the person to whom it pertains, or as otherwise permitted by law. Any unauthorized further disclosure in violation of state law may result in a fine or senior living sentence or both. A general authorization for the release of medical or other information is NOT sufficient authorization for further disclosure. Allergies and Adverse Reactions Type Description Substance Reaction Status Data Source(s ) Drug allergy No Known Allergies No Known Allergies [facility] Encounters Encounter Providers Location Date Indications Data Source(s ) Outpatient Attender: [facility]AN [facility] [facility] ZEESHAN BARRYJAMES EDT [facility] Z03.818 Emergency Attender: Juan 05/02/2019 02:12:00 HEADACHE/ HBP [place] [facility] PM EST - 05/02/2019 [place] [facility] 06:29:00 PM [place] Patient [place]. Emergency Attender: Candida 11/30/2018 09:35:00 MEDICAL EVAL [place] Bong DO AM EDT - 11/30/2018 [place] [facility] 01:05:00 PM EDT [place] Patient discharged. Insurance Providers Payer name Policy type Policy ID Covered Covered democrat's Policy P vance / Coverage democrat ID relationship to [facility] [employer] type sanchez [employer] [id number] SP [id number] ACCESS HIP EXCHANGE [id number] SP [id number] SELF PAY PT INSURANCE COMMERCIAL [id number] PT [id number] OTHER 1 TOTAL PLAN [id number] PT [id number] CONCEPTS TOTAL PLAN [id number] PT [id number] CONCEPTS MEDICAID [facility] [id number] PT [id number] SELF PAY SP INSURANCE Emblem Select [id number] [facility] Value Problems, Conditions, and Diagnoses Code Display Name Description Problem Type Effective Data Sour ce(s) Dates Z03.818 Encounter for ENCNTR FOR OBS Diagnosis 10/07/2019 [place] [facility] observation for FOR SUSP EXPSR TO 06:00:00 AM C ountStance suspected OTH BIOLG AGENTS EDT [facility] poration exposure to other RULED OUT biological agents ruled out R51 Headache R51 Diagnosis 05/02/2019 [place] 04:03:00 PM Hospital EST Surgeries/Procedures Procedure Description Date Indications Data Source(s) Electrocardiographic procedure 05/02/2019 [place] (procedure) 12:00:00 AM Hospital EST Results ID Date Data Source [id number] 03/26/2020 12:00:00 AM EDT [facility] Name Value Range Interpretation Description Data Sup porting Code Source(s) Document(s ) SARS [facility] coronavirus 2 (SARS-CoV-2) This lab was ordered by [employer] and reported by [facility]. ID Date Data Source [id number] 03/19/2020 11:00:00 AM EDT [facility] Name Value Range Interpretation Code Description Data Naty rce(s) Supporting Document(s ) SARS-CoV-2 [facility] This lab was ordered by [employer] and reported by [facility]. ID Date Data Source [id number] 03/14/2020 11:20:00 AM EDT [facility] Name Value Range Interpretation Code Description Data Naty rce(s) Supporting Document(s ) SARS-CoV-2 [facility] This lab was ordered by [employer] and reported by [facility]. ID Date Data Source [id number] 03/07/2020 11:35:00 AM EDT [facility] Name Value Range Interpretation Code Description Data Naty rce(s) Supporting Document(s ) SARS-CoV-2 [facility] This lab was ordered by [employer] and reported by [facility]. ID Date Data Source [id number] 02/29/2020 11:18:00 AM EDT [facility] Name Value Range Interpretation Code Description Data Naty rce(s) Supporting Document(s ) SARS-CoV-2 [facility] This lab was ordered by [employer] and reported by [facility]. ID Date Data Source [id number] 02/24/2020 12:00:00 AM EDT [facility] Name Value Range Interpretation Code Description Data Naty rce(s) Supporting Document(s ) SARS [facility] This lab [facility] [place] and reported by [employer]. ID Date Data Source [id number] 02/15/2020 09:02:00 AM EDT [facility] Name Value Range Interpretation Code Description Data Naty rce(s) Supporting Document(s ) SARS-CoV-2 [facility] This lab was ordered by [employer] and reported by [facility]. ID Date Data Source [id number] 02/08/2020 11:27:00 AM EDT [facility] Name Value Range Interpretation Code Description Data Naty rce(s) Supporting Document(s ) SARS-CoV-2 [facility] This lab was ordered by [employer] and reported by [facility]. ID Date Data Source [id number] 01/11/2020 12:00:00 AM EDT [facility] Name Value Range Interpretation Code Description Data Naty rce(s) Supporting Document(s ) nCoV [facility] RNA XXX MARYURI+probe- Imp This lab was ordered by [employer] and repo rted by [facility]. ID Date Data Source [id number] 01/04/2020 12:00:00 AM EDT [facility] Name Value Range Interpretation Code Description Data Naty rce(s) Supporting Document(s ) nCoV [facility] RNA XXX MARYURI+probe- Imp This lab was ordered by [employer] and repo rted by [facility]. ID Date Data Source [id number] 12/28/2019 12:00:00 AM EDT [facility] Name Value Range Interpretation Code Description Data Naty rce(s) Supporting Document(s ) 2018-nCoV [facility] RNA XXX MARYURI+probe- Imp This lab was ordered by [employer] and repo rted by [employer] ID Date Data Source [id number] 12/15/2019 12:00:00 AM EDT [facility] Name Value Range Interpretation Code Description Data Naty rce(s) Supporting Document(s ) nCoV [facility] RNA XXX MARYURI+probe- Imp This lab was ordered by [employer] and repo rted by [facility]. ID Date Data Source [id number] 12/07/2019 12:00:00 AM EDT [facility] Name Value Range Interpretation Code Description Data Naty rce(s) Supporting Document(s ) nCoV [facility] RNA XXX MARYURI+probe- Imp This lab was ordered by [employer] and repo rted by [facility]. ID Date Data Source [id number] 12/05/2019 12:00:00 AM EDT [facility] Name Value Range Interpretation Code Description Data Naty rce(s) Supporting Document(s ) nCoV [facility] RNA XXX MARYURI+probe- Imp This lab was ordered by [employer] and repo rted by [facility]. ID Date Data Source [id number] 11/30/2019 12:00:00 AM EDT [facility] Name Value Range Interpretation Code Description Data Naty rce(s) Supporting Document(s ) nCoV [facility] RNA XXX MARYURI+probe- Imp This lab was ordered by [employer] and repo rted by [employer] ID Date Data Source [id number] 11/29/2019 12:00:00 AM EDT [facility] Name Value Range Interpretation Code Description Data Naty rce(s) Supporting Document(s ) nCoV [facility] RNA XXX MARYURI+probe- Imp This lab was ordered by [employer] and repo rted by [employer] ID Date Data Source [id number] 11/28/2019 12:00:00 AM EDT [facility] Name Value Range Interpretation Code Description Data Naty rce(s) Supporting Document(s ) 2018-nCoV [facility] RNA XXX MARYURI+probe- Imp This lab was ordered by [employer] and repo rted by [employer] ID Date Data Source [id number] 11/11/2019 12:00:00 AM EDT [facility] Name Value Range Interpretation Code Description Data Naty rce(s) Supporting Document(s ) 2018-nCoV [facility] RNA XXX MARYURI+probe- Imp This lab was ordered by [employer] and repo rted by [employer] ID Date Data Source [id number] 10/07/2019 12:00:00 AM EDT [facility] Name Value Range Interpretation Code Description Data Naty rce(s) Supporting Document(s ) nCoV [facility] RNA XXX MARYURI+probe- Imp This lab was ordered by [facility] and reported by [employer] ID Date Data Source [id number] 05/02/2019 03:54:00 PM EST [facility] Name Value Range Interpretation Description Data Sup porting Code Source(s) Document(s ) Aspartate 16 U/L White aminotransferase [place] [Enzymatic Hospital activity/volume] in Serum or Plasma ID Date Data Source [id number] 05/02/2019 03:54:00 PM EST [facility] Name Value Range Interpretation Description Data Sup porting Code Source(s) Document(s ) Alanine 12 U/L White aminotransferase [place] [Enzymatic Hospital activity/volume] in Serum or Plasma ID Date Data Source [id number] 05/02/2019 03:54:00 PM EST [facility] Name Value Range Interpretation Description Data Sup porting Code Source(s) Document(s ) Alkaline 47 U/L [place] phosphatase [facility] [Enzymatic activity/volume ] in Serum or Plasma ID Date Data Source [id number] 05/02/2019 03:54:00 PM [facility] Name Value Range Interpretation Description Data Sup porting Code Source(s) Document(s ) Bilirubin.t 0.3 mg/dL [facility] [Mass/volum e] in Serum or Plasma ID Date Data Source [id number] 05/02/2019 03:54:00 PM [facility] Name Value Range Interpretation Code Description Data Naty rce(s) Supporting Document(s ) [facility] in Serum or Plasma ID Date Data Source [id number] 05/02/2019 03:54:00 PM [facility] Name Value Range Interpretation Description Data Sup porting Code Source(s) Document(s ) Albumin 4.6 g/dL [place] [Mass/volume Hospital ] in Serum or Plasma ID Date Data Source [id number] 05/02/2019 03:54:00 PM [facility] Name Value Range Interpretation Description Data Sup porting Code Source(s) Document(s ) Protein 6.9 g/dL [place] [Mass/volume Hospital ] in Serum or Plasma ID Date Data Source [id number] 05/02/2019 03:54:00 PM EST [place] [facility] Name Value Range Interpretation Description Data Sup porting Code Source(s) Document(s ) Calcium 8.9 mg/dL [place] [Mass/volume Hospital ] in Serum or Plasma ID Date Data Source [id number] 05/02/2019 03:54:00 PM EST [place] [facility] Name Value Range Interpretation Code Description Data Naty rce(s) Supporting Document(s ) Urea 16.7 [place] nitrogen/Cre Hospital atinine [Mass Ratio] in Serum or Plasma ID Date Data Source [id number] 05/02/2019 03:54:00 PM EST [facility] Name Value Range Interpretation Description Data Sup porting Code Source(s) Document(s ) Creatinine 0.6 mg/dL [place] [Mass/volume] Hospital in Serum or Plasma ID Date Data Source [id number] 05/02/2019 03:54:00 PM EST [place] [facility] Name Value Range Interpretation Description Data Sup porting Code Source(s) Document(s ) Urea 10 mg/dL [place] nitrogen Hospital [Mass/volume ] in Serum or Plasma ID Date Data Source [id number] 05/02/2019 03:54:00 PM EST [place] [facility] Name Value Range Interpretation Code Description Data Naty rce(s) Supporting Document(s ) Anion gap in 12 [place] Serum or Hospital Plasma ID Date Data Source [id number] 05/02/2019 03:54:00 PM EST [place] [facility] Name Value Range Interpretation Description Data Sup porting Code Source(s) Document(s ) Carbon 24 mmol/L [place] dioxide, Hospital total [Moles/volu me] in Serum or Plasma ID Date Data Source [id number] 05/02/2019 03:54:00 PM EST [facility] Name Value Range Interpretation Description Data Sup porting Code Source(s) Document(s ) Chloride 107 [place] [Moles/volum mmol/L Hospital e] in Serum or Plasma ID Date Data Source [id number] 05/02/2019 03:54:00 PM EST [facility] Name Value Range Interpretation Description Data Sup porting Code Source(s) Document(s ) Potassium 4.0 [place] [Moles/volume mmol/L Hospital ] in Serum or Plasma ID Date Data Source [id number] 05/02/2019 03:54:00 PM EST [facility] Value Range Interpretation Description Data Sup porting Code Source(s) Document(s ) Sodium 139 mmol/L [place] [Moles/volu Hospital me] in Serum or Plasma ID Date Data Source [id number] 05/02/2019 03:54:00 PM EST [facility] Name Value Range Interpretation Description Data Sup porting Code Source(s) Document(s ) Glucose 80 mg/dL [place] [Mass/volume Hospital ] in Serum or Plasma ID Date Data Source [id number] 05/02/2019 03:54:00 PM EST [facility] Value Range Interpretation Code Description Data Supporting Source(s) Document(s ) NUCLEATED RBCS 0.0 % [place] (AUTO Hospital DIFF%)DIS ID Date Data Source [id number] 05/02/2019 03:54:00 PM [facility] Value Range Interpretation Description Data Sup porting Code Source(s) Document(s ) Differential AUTOMATED [place] cell count Hospital method - Blood ID Date Data Source [id number] 05/02/2019 03:54:00 PM EST [place] [facility] Name Value Range Interpretation Description Data Sup porting Code Source(s) Document(s ) Immature 0.01 [place] granulocytes 10*3/uL Hospital [#/volume] in Blood by Automated count ID Date Data Source [id number] 05/02/2019 03:54:00 PM EST [facility] Name Value Range Interpretation Description Data Sup porting Code Source(s) Document(s ) Basophils 0.04 [place] [#/volume] in 10*3/uL Hospital Blood by Automated count ID Date Data Source [id number] 05/02/2019 03:54:00 PM EST [facility] Value Range Interpretation Description Data Sup porting Code Source(s) Document(s ) Eosinophils 0.21 [place] [#/volume] in 10*3/uL Hospital Blood by Automated count ID Date Data Source [id number] 05/02/2019 03:54:00 PM EST [facility] Value Range Interpretation Description Data Sup porting Code Source(s) Document(s ) Monocytes 0.47 [place] [#/volume] in 10*3/uL Hospital Blood by Automated count ID Date Data Source [id number] 05/02/2019 03:54:00 PM EST [facility] Name Value Range Interpretation Description Data Sup porting Code Source(s) Document(s ) Lymphocytes 2.02 [place] [#/volume] in 10*3/uL Hospital Blood by Automated count ID Date Data Source [id number] 05/02/2019 03:54:00 PM EST [facility] Name Value Range Interpretation Description Data Sup porting Code Source(s) Document(s ) Neutrophils 2.84 [place] [#/volume] in 10*3/uL Hospital Blood by Automated count ID Date Data Source [id number] 05/02/2019 03:54:00 PM [facility] Name Value Range Interpretation Description Data Sup porting Code Source(s) Document(s ) Nucleated 0.0 % [place] erythrocytes/10 Hospital 0 leukocytes [Ratio] in Blood by Automated count ID Date Data Source [id number] 05/02/2019 03:54:00 PM [facility] Value Range Interpretation Description Data Sup porting Code Source(s) Document(s ) Immature 0.2 % [place] granulocytes/10 Hospital 0 leukocytes in Blood by Automated count ID Date Data Source [id number] 05/02/2019 03:54:00 PM [facility] Value Range Interpretation Description Data Sup porting Code Source(s) Document(s ) Basophils/100 0.7 % [place] leukocytes in Hospital Blood by Automated count ID Date Data Source [id number] 05/02/2019 03:54:00 PM [facility] Value Range Interpretation Description Data Sup porting Code Source(s) Document(s ) Eosinophils/100 3.8 % [place] leukocytes in Hospital Blood by Automated count ID Date Data Source [id number] 05/02/2019 03:54:00 PM [facility] Value Range Interpretation Description Data Sup porting Code Source(s) Document(s ) Monocytes/100 8.4 % [place] leukocytes in Hospital Blood by Automated count ID Date Data Source [id number] 05/02/2019 03:54:00 PM [facility] Value Range Interpretation Description Data Sup porting Code Source(s) Document(s ) Lymphocytes/10 36.1 % [place] 0 leukocytes Hospital in Blood by Automated count ID Date Data Source [id number] 05/02/2019 03:54:00 PM [facility] Value Range Interpretation Description Data Sup porting Code Source(s) Document(s ) Neutrophils/10 50.8 % [place] 0 leukocytes Hospital in Blood by Automated count ID Date Data Source [id number] 05/02/2019 03:54:00 PM [facility] Name Value Range Interpretation Description Data Sup porting Code Source(s) Document(s ) Platelet mean 10.2 fL [place] volume Hospital [Entitic volume] in Blood by Automated count ID Date Data Source [id number] 05/02/2019 03:54:00 PM [facility] Name Value Range Interpretation Description Data Sup porting Code Source(s) Document(s ) Platelets 209 [place] [#/volume] in 10*3/uL Hospital Blood by Automated count ID Date Data Source [id number] 05/02/2019 03:54:00 PM [facility] Value Range Interpretation Description Data Sup porting Code Source(s) Document(s ) Erythrocyte 19.8 % [facility] Hospital width [Ratio] by Automated count ID Date Data Source [id number] 05/02/2019 03:54:00 PM [facility] Value Range Interpretation Description Data Sup porting Code Source(s) Document(s ) Erythrocyte mean 29.6 [place] corpuscular g/dL Hospital hemoglobin concentration [Mass/volume] by Automated count ID Date Data Source [id number] 05/02/2019 03:54:00 PM [facility] Name Value Range Interpretation Description Data Sup porting Code Source(s) Document(s ) Erythrocyte 20.1 pg [facility] corpuscular hemoglobin [Entitic mass] by Automated count ID Date Data Source [id number] 05/02/2019 03:54:00 PM [facility] Value Range Interpretation Description Data Sup porting Code Source(s) Document(s ) Erythrocyte 68.1 fL [facility] corpuscular volume [Entitic volume] by Automated count ID Date Data Source [id number] 05/02/2019 03:54:00 PM [facility] Name Value Range Interpretation Description Data Sup porting Code Source(s) Document(s ) Hematocrit 30.1 % [place] [Volume Hospital Fraction] of Blood by Automated count ID Date Data Source [id number] 05/02/2019 03:54:00 PM [facility] Value Range Interpretation Description Data Sup porting Code Source(s) Document(s ) Hemoglobin 8.9 g/dL [place] [Mass/volume] Hospital in Blood ID Date Data Source [id number] 05/02/2019 03:54:00 PM [facility] Name Value Range Interpretation Description Data Sup porting Code Source(s) Document(s ) Erythrocytes 4.42 [place] [#/volume] in 10*6/uL Hospital Blood by Automated count ID Date Data Source [id number] 05/02/2019 03:54:00 PM [facility] Value Range Interpretation Description Data Sup porting Code Source(s) Document(s ) Leukocytes 5.6 [place] [#/volume] in 10*3/uL Hospital Blood by Automated count ID Date Data Source [id number] 05/02/2019 03:05:00 PM [facility] Value Range Interpretation Description Data Sup porting Code Source(s) Document(s ) Choriogonadotropin NEGATIVE [facility] ( test) [place] [Presence] in Urine Hospital Procedure Vital Signs ID Date Data Source UNK Name Value Range Interpretation Code Description Data Source(s) Diastolic blood 85 mm[Hg] 85 mm[Hg] [facility] ins pressure Hospital Systolic blood 146 mm[Hg] 146 mm[Hg] [facility] ns pressure Hospital Respiratory rate 18 /min 18 /min [facility] ains [facility] Heart rate 66 /min 66 /min [facility] Body temperature 37.10382 37.99734 [facility] Body temperature 98.6 [degF] 98.6 [degF] [facility] Body mass index 37.0 kg/m2 37.0 kg/m2 [facility] ins (BMI) [Ratio] Hospital Body weight 230.49 230.49 [lb_av] [facility] ins [lb_av] Hospital
[2020-04-06] MEDS ORDERED: METOCLOPRAMIDE HCL INJECTION 10 MG/2 ML VIAL IVPUSH ONE (11:54)
[2020-04-06] MEDS ORDERED: SODIUM CHLORIDE 0.9% 500 ML INFUS.BAG IV ONE (11:55)
[2020-04-06] MEDS ORDERED: METOCLOPRAMIDE HCL INJECTION 10 MG/2 ML VIAL ONE (12:09)
--- NOTE | 2020-04-06 12:22 | PDOC ---
Documentation entered by Hali Phan SCRIBE, acting as scribe for Bennie Brandt MD. Bennie Brandt MD: This documentation has been prepared by the Sylvester cunningham Ana, SCRIBE, under my direction and personally reviewed by me in its entirety. I confirm that the documentation accurately reflects all work, treatment, procedures, and medical decision making performed by me. Attending Attestation - Resident Resident Name: Stephanie Medina - ED Attending Attestation I have performed the following: I have examined & evaluated the patient, The case was reviewed & discussed with the resident, I agree w/resident's findings & plan, Exceptions are as noted - HPI HPI: 04/06/20 11:22 Patient is a 29 year old female with a significant past medical history bipolar disorder, anemia, and hyperthyroid, who presents to the ED with generalized weakness, lightheadedness, and palpitations x1 week. Patient has a history of having heavy menstrual periods and after lab work at PCP's office yesterday, PCP told her to come to ER for a blood transfusion. Patient denies: any other related symptoms. Allergies: NKDA - Physicial Exam PE: 04/06/20 11:22 See resident exam. - Medical Decision Making 04/06/20 12:23 29 F with palpitations, lightheadedness. EKG wnl, no evidence of arrhythmia. - Labs, TSH 04/06/20 14:12 Hb 5.1 today, likely 2/2 menorraghia Will txfuse 2u PRBCs Discharge - Discharge Information Problems reviewed: Yes Clinical Impression/Diagnosis: Anemia Qualifiers: Anemia type: iron deficiency Iron deficiency anemia type: unspecified iron deficiency Qualified Code(s): D50.9 - Iron deficiency anemia, unspecified Condition: Improved Disposition: HOME - Follow up/Referral - Patient Discharge Instructions - Post Discharge Activity
[2020-04-06 12:49] LABS: BASO % 0.6 % (0-2.0); EOS % 3.6 % (0-4.5); HEMATOCRIT 16.7 % (32.4-45.2); LYMPH % 32.4 % (8-40); MCH 20.6 pg (25.7-33.7); MCHC 30.6 g/dl (32.0-36.0); MEAN CELL VOLUME 67.3 fl (80-96); MEAN PLT VOLUME 9.3 fl (7.5-11.1); MONO % 8.3 % (3.8-10.2); NEUT % 55.1 % (42.8-82.8); PLATELET COUNT 247 K/MM3 (134-434); RBC 2.48 M/mm3 (3.60-5.2); RDW 20.5 % (11.6-15.6); WHITE BLOOD COUNT 4.1 K/mm3 (4.0-10.0)
[2020-04-06 13:01] LABS: INR 1.01 (0.83-1.09); PROTHROMBIN TIME (PATIENT) 12.4 SEC (9.7-13.0)
[2020-04-06 13:02] LABS: HEMOGLOBIN 5.1 GM/dL (10.7-15.3)
[2020-04-06 13:04] LABS: ACTIVATED PTT 25.8 SECONDS (25.2-36.5)
[2020-04-06 13:27] LABS: ALBUMIN 3.5 g/dl (3.4-5.0); ALK PHOS 38 U/L (45-117); ANION GAP 3 MMOL/L (8-16); BILIRUBIN,TOTAL 0.4 mg/dL (0.2-1); CALCIUM 8.8 mg/dL (8.5-10.1); CHLORIDE 109 mmol/L (98-107); CO2 26 mmol/L (21-32); CREATININE 0.6 mg/dL (0.55-1.3); GLUCOSE,RANDOM 86 mg/dL (74-106); MAGNESIUM 2.1 mg/dL (1.8-2.4); POTASSIUM 3.8 mmol/L (3.5-5.1); SGOT/AST 14 U/L (15-37); SGPT/ALT 16 U/L (13-61); SODIUM 139 mmol/L (136-145); TOT PROT 6.8 g/dl (6.4-8.2)
--- NOTE | 2020-04-06 13:46 | EKG ---
Test Reason : Blood Pressure : / mmHG Vent. Rate : 081 BPM Atrial Rate : 081 BPM P-R Int : 166 ms QRS Dur : 082 ms QT Int : 372 ms P-R-T Axes : 055 034 039 degrees QTc Int : 432 ms NORMAL SINUS RHYTHM NORMAL ECG WHEN COMPARED WITH ECG OF 06-FEB-2018 23:55, T WAVE AMPLITUDE HAS DECREASED IN LATERAL LEADS Confirmed by FREDI KRUSE MD ([id number]) on 04/06/2020 1:45:46 PM Referred By: Confirmed By:FREDI KRUSE MD
[2020-04-06 13:53] LABS: ANISOCYTOSIS 2+; OVALOCYTE 1+; TEAR DROP CELLS 1+
[2020-04-06 13:54] LABS: PLATELET ESTIMATE NORMAL
--- NOTE | 2020-04-06 15:48 | HP ---
CHIEF COMPLAINT: palpitations, fatigue PCP: Dr. Jennifer Lloyd HISTORY OF PRESENT ILLNESS: Patient is a 29 year old female with history of anemia (?thalessemia), bipolar disorder, hypothyroidism presents with complaint of palpitations and fatigue. Endorses symptoms have been ongoing for the past two weeks. She does endorse her last menstrual period ended on 03/25 and had lasted 13 days with heavy flow (which is not usual). Patient endorses she had been prescribed Nuva Ring in the past month which she believes had altered her menstrual periods. Patient endorses that her menstrual periods are usually heavy, and regular lasting 6- 7 days. She admits close follow up with her OBGYN. Denies any melena or hematochezia. Denies subjective fevers, chills, shortness of breath, chest pain. Patient states she had her first visit with Dr. Lloyd who informed her of the lab results, and prompted her to proceed to Emergency Department. ER course was notable for: (1) Hgb 5.1/ Hct 16.7 (2) PRBC transfusion (3) Recent Travel: denies PAST MEDICAL HISTORY: anemia, bipolar disorder, hypothyroidism PAST SURGICAL HISTORY: denies Social History: Smoking: Quit smoking one week ago. Formerly smoked approx 1/4 pack per day. Alcohol: Denies Drugs: Denies Allergies No Known Allergies Allergy (Verified 04/06/20 10:45) HOME MEDICATIONS: Home Medications Medication Instructions Recorded NK [No Known Home Medication] 04/06/20 REVIEW OF SYSTEMS CONSTITUTIONAL: Absent: fever, chills, diaphoresis, generalized weakness, malaise, loss of appetite, weight change HEENT: Absent: rhinorrhea, nasal congestion, throat pain, throat swelling, difficulty swallowing, mouth swelling, ear pain, eye pain, visual changes CARDIOVASCULAR: Absent: chest pain, syncope, palpitations, irregular heart rate, lightheadedness, peripheral edema RESPIRATORY: Absent: cough, shortness of breath, dyspnea with exertion, orthopnea, wheezing, stridor, hemoptysis GASTROINTESTINAL: Absent: abdominal pain, abdominal distension, nausea, vomiting, diarrhea, constipation, melena, hematochezia GENITOURINARY: Absent: dysuria, frequency, urgency, hesitancy, hematuria, flank pain, genital pain MUSCULOSKELETAL: Absent: myalgia, arthralgia, joint swelling, back pain, neck pain SKIN: Absent: rash, itching, pallor HEMATOLOGIC/IMMUNOLOGIC: Absent: easy bleeding, easy bruising, lymphadenopathy, frequent infections ENDOCRINE: Absent: unexplained weight gain, unexplained weight loss, heat intolerance, cold intolerance NEUROLOGIC: Absent: headache, focal weakness or paresthesias, dizziness, unsteady gait, seizure, mental status changes, bladder or bowel incontinence PSYCHIATRIC: Absent: anxiety, depression, suicidal or homicidal ideation, hallucinations. PHYSICAL EXAMINATION Vital Signs - 24 hr 04/06/20 04/06/20 04/06/20 10:46 14:30 14:43 Temperature 99.1 F 98.4 F Pulse Rate 90 Pulse Rate [ 78 Left] Respiratory 18 18 Rate Blood Pressure 117/71 Blood Pressure 122/69 [Right Arm] O2 Sat by Pulse 100 99 99 Oximetry (%) 04/06/20 14:57 Temperature 98.1 F Pulse Rate Pulse Rate [ 88 Left] Respiratory 18 Rate Blood Pressure Blood Pressure 113/73 [Right Arm] O2 Sat by Pulse 100 Oximetry (%) GENERAL: Awake, alert, and fully oriented, in no acute distress. HEAD: Normal with no signs of trauma. EYES: Pupils equal, round and reactive to light, extraocular movements intact, sclera anicteric, conjunctiva clear. No lid lag. EARS, NOSE, THROAT: Ears normal, nares patent, oropharynx clear without exudates. Moist mucous membranes. NECK: Normal range of motion, supple without lymphadenopathy, JVD, or masses. LUNGS: Breath sounds equal, clear to auscultation bilaterally. No wheezes, and no crackles. No accessory muscle use. HEART: Regular rate and rhythm, normal S1 and S2 without murmur, rub or gallop. ABDOMEN: Soft, nontender, not distended, normoactive bowel sounds, no guarding, no rebound, no masses. No hepatomegaly or splenomegaly. MUSCULOSKELETAL: Normal range of motion at all joints. No bony deformities or tenderness. No CVA tenderness. UPPER EXTREMITIES: 2+ pulses, warm, well-perfused. No cyanosis. No clubbing. No peripheral edema. LOWER EXTREMITIES: 2+ pulses, warm, well-perfused. No calf tenderness. No peripheral edema. NEUROLOGICAL: Cranial nerves II-XII intact. Normal speech. Normal gait. PSYCHIATRIC: Cooperative. Good eye contact. Appropriate mood and affect. SKIN: Warm, dry, normal turgor, no rashes or lesions noted, normal capillary refill. Laboratory Results - last 24 hr 04/06/20 04/06/20 04/06/20 12:03 12:11 12:11 WBC 4.1 RBC 2.48 L Hgb 5.1 L* Hct 16.7 L D MCV 67.3 L MCH 20.6 L MCHC 30.6 L RDW 20.5 H Plt Count 247 MPV 9.3 Absolute Neuts (auto) 2.2 Neutrophils % 55.1 Lymphocytes % 32.4 Monocytes % 8.3 Eosinophils % 3.6 Basophils % 0.6 Nucleated RBC % 0 Hypochromia 3+ Platelet Estimate Normal Platelet Comment No clumping noted Polychromasia 1+ Poikilocytosis 1+ Anisocytosis 2+ Microcytosis 2+ Tear Drop Cells 1+ Ovalocytes 1+ Stomatocytes 1+ PT with INR 12.40 INR 1.01 PTT (Actin FS) 25.8 Sodium 139 Potassium 3.8 Chloride 109 H Carbon Dioxide 26 Anion Gap 3 L BUN 7.0 Creatinine 0.6 Est GFR (CKD-EPI)AfAm 142.76 Est GFR (CKD-EPI)NonAf 123.17 Random Glucose 86 Calcium 8.8 Magnesium 2.1 Total Bilirubin 0.4 AST 14 L ALT 16 Alkaline Phosphatase 38 L Total Protein 6.8 Albumin 3.5 TSH 0.87 Free T4 0.84 Beta HCG, Quant < 1.0 Stool Occult Blood Blood Type Antibody Screen Crossmatch 04/06/20 04/06/20 12:11 14:09 WBC RBC Hgb Hct MCV MCH MCHC RDW Plt Count MPV Absolute Neuts (auto) Neutrophils % Lymphocytes % Monocytes % Eosinophils % Basophils % Nucleated RBC % Hypochromia Platelet Estimate Platelet Comment Polychromasia Poikilocytosis Anisocytosis Microcytosis Tear Drop Cells Ovalocytes Stomatocytes PT with INR INR PTT (Actin FS) Sodium Potassium Chloride Carbon Dioxide Anion Gap BUN Creatinine Est GFR (CKD-EPI)AfAm Est GFR (CKD-EPI)NonAf Random Glucose Calcium Magnesium Total Bilirubin AST ALT Alkaline Phosphatase Total Protein Albumin TSH Free T4 Beta HCG, Quant Stool Occult Blood Negative Blood Type A POSITIVE Antibody Screen Negative Crossmatch See Detail ASSESSMENT/PLAN: Patient is a 29 year old female with history of anemia (?thalessemia), bipolar disorder, hypothyroidism presents with complaint of palpitations and fatigue. Acute blood loss anemia -Hgb 5.1/ Hct 16.7 -Suspect secondary to menorrhagia. Noted prior workup for Thalessemia, though patient has not followed up. Also endorses history of weekly iron infusions several years ago, however discontinued the treatment. -Receiving 2 units PRBC in ED -Follow repeat CBC -Attempt to add on iron studies to CBC prior to transfusion -Hematology consult (Dr. Toth) -QUANTITATIVE MANAGER consult (Dr. Mckeon) History of Grave's disease -Reports she was on Methimazole, however self discontinued over a year ago -Obtain TSH, Free T4 History of Bipolar disorder -Currently not taking any medications. Denies suicidal/ homicidal ideation. -Counselled regarding outpatient psychiatry follow up FEN -No IV fluids indicated -Follow BMP -Regular diet Prophylaxis -Early ambulation Disposition -Admit to medical surgical floor. Family Medical History Family History: Unremarkable Visit type - Emergency Visit Emergency Visit: Yes ED Registration Date: 04/06/20 Care time: The patient presented to the Emergency Department on the above date and was hospitalized for further evaluation of their emergent condition. - New Patient This patient is new to me today: Yes Date on this admission: 04/06/20 - Critical Care Critical Care patient: No ATTENDING PHYSICIAN STATEMENT I saw and evaluated the patient. I reviewed the resident's note and discussed the case with the resident. I agree with the resident's findings and plan as documented. SUBJECTIVE: OBJECTIVE: ASSESSMENT AND PLAN:
--- OUTSIDE RECORDS SUMMARY | 2020-04-06 16:03 | XMS ---
:1990 Author Organization [facility] Care Team Providers Name Role Phone ZEESHANBARRYJARRET [...] is protected by Article 27-F of the [facility] Public Health law. If you continue you may haveaccess to information: Regarding HIV / AIDS; Provided by facilities licensed or operated by the [facility] Office of Mental Health; or Provided by the [facility] Office for People With Developmental Disabilities. If such information is present, then the following [facility] mandated warning applies: This information has been [...] law may result in a fine or chcf sentence or both. A general authorization for the release of medical or other information is NOT sufficient authorization for further disclosure. Allergies and Adverse Reactions Type Description Substance Reaction Status Data Source(s ) Drug allergy No Known Allergies No Known Allergies [facility] Encounters Encounter Providers Location Date Indications Data Source(s ) Outpatient Attender: Z[facility]ESHAN [facility] are ZEESHAN BARRYJAMES EDT [facility] Z03.818 Emergency Attender: Juan 05/02/2019 02:12:00 HEADACHE/ HBP [facility] Batt[facility] PM EST - 05/02/2019 [place] [facility] 06:29:00 PM EST [place]/HBP [place] Patient discharged. Emergency Attender: Candida 11/30/2018 09:35:00 MEDICAL EVAL [facility] Bong DO AM EDT - 11/30/2018 [place] [facility] 01:05:00 PM EDT MEDICAL EVAL [place] Patient discharged. Insurance Providers Payer name Policy type Policy ID Covered Covered green party's Policy P vance / Coverage green party ID relationship to [facility] [employer] type s[employer] [id number] SP [id number] ACCESS HIP EXCHANGE [id number] SP [id number] SELF PAY PT INSURANCE COMMERCIAL [id number] PT [id number] OTHER 1 TOTAL PLAN [id number] PT [id number] CONCEPTS TOTAL PLAN [id number] PT [id number] CONCEPTS MEDICAID [facility] [id number] PT [id number] SELF PAY SP INSURANCE Em[employer] [id number] Care Silver Value Problems, Conditions, and Diagnoses Code Display Name Description Problem Type Effective Data Sour ce(s) Dates Z03.818 Encounter for ENCNTR FOR OBS Diagnosis 10/07/2019 [place] [facility] observation for FOR SUSP EXPSR TO 06:00:00 AM [facility] suspected OTH BIOLG AGENTS EDT Care [facility] poration exposure to other RULED OUT biological agents ruled out R51 Headache R51 Diagnosis 05/02/2019 [facility] 04:03:00 PM Hospital EST Surgeries/Procedures Procedure Description Date Indications Data Source(s) Electrocardiographic procedure 05/02/2019 [facility] (procedure) 12:00:00 AM Hospital EST Results ID Date Data Source [id number] 03/26/2020 12:00:00 AM EDT [facility] Name Value Range Interpretation Description Data Sup porting Code Source(s) Document(s ) SARS [facility] coronavirus 2 (SARS-CoV-2) This lab was ordered by [employer] and reported by [facility]. ID Date Data Source [id number] 03/19/2020 11:00:00 AM EDT [facility] Name Value Range Interpretation Code Description Data Naty rce(s) Supporting Document(s ) SARS-CoV-2 [facility] This lab was ordered by [employer] and reported by [employer]. ID Date Data Source [id number] 03/14/2020 11:20:00 AM EDT [facility] Name Value Range Interpretation Code Description Data Naty rce(s) Supporting Document(s ) SARS-CoV-2 [facility] This lab was ordered by [employer] and reported by [employer]. ID Date Data Source [id number] 03/07/2020 11:35:00 AM EDT [facility] Name Value Range Interpretation Code Description Data Naty rce(s) Supporting Document(s ) SARS-CoV-2 [facility] This lab was ordered by [employer] and reported by [employer]. ID Date Data Source [id number] 02/29/2020 11:18:00 AM EDT [facility] Name Value Range Interpretation Code Description Data Naty rce(s) Supporting Document(s ) SARS-CoV-2 [facility] This lab was ordered by [employer] and reported by [employer]. ID Date Data Source [id number] 02/24/2020 12:00:00 AM EDT [facility] Name Value Range Interpretation Code Description Data Naty rce(s) Supporting Document(s ) SARS [facility] This lab was ordered by [facility] and reported by [email or web address]. ID Date Data Source [id number] 02/15/2020 09:02:00 AM EDT [facility] Name Value Range Interpretation Code Description Data Naty rce(s) Supporting Document(s ) SARS-CoV-2 [facility] This lab was ordered by [employer] and reported by [employer]. ID Date Data Source [id number] 02/08/2020 11:27:00 AM EDT [facility] Name Value Range Interpretation Code Description Data Naty rce(s) Supporting Document(s ) SARS-CoV-2 [facility] This lab was ordered by [employer] and reported by [employer]. ID Date Data Source [id number] 01/11/2020 12:00:00 AM EDT [facility] Name Value Range Interpretation Code Description Data Naty rce(s) Supporting Document(s ) 2018-nCoV [facility] RNA XXX MARYURI+probe- Imp This lab was ordered by [employer] and repo rted by [employer]. ID Date Data Source [id number] 01/04/2020 12:00:00 AM EDT [facility] Name Value Range Interpretation Code Description Data Naty rce(s) Supporting Document(s ) nCoV [facility] RNA XXX MARYURI+probe- Imp This lab was ordered by [employer] and repo rted by [employer]. ID Date Data Source [id number] 12/28/2019 12:00:00 AM EDT [facility] Name Value Range Interpretation Code Description Data Naty rce(s) Supporting Document(s ) 2018-nCoV [facility] RNA XXX MARYURI+probe- Imp This lab was ordered by [employer] and repo rted by [employer] ID Date Data Source [id number] 12/15/2019 12:00:00 AM EDT [facility] Name Value Range Interpretation Code Description Data Naty rce(s) Supporting Document(s ) nCoV [facility] RNA XXX MARYURI+probe- Imp This lab was ordered by [employer] and repo rted by [employer]. ID Date Data Source [id number] 12/07/2019 12:00:00 AM EDT [facility] Name Value Range Interpretation Code Description Data Naty rce(s) Supporting Document(s ) nCoV [facility] RNA XXX MARYURI+probe- Imp This lab was ordered by [employer] and repo rted by [employer]. ID Date Data Source [id number] 12/05/2019 12:00:00 AM EDT [facility] Name Value Range Interpretation Code Description Data Naty rce(s) Supporting Document(s ) nCoV [facility] RNA XXX MARYURI+probe- Imp This lab was ordered by [employer] and repo rted by [employer] ID Date Data Source [id number] 11/30/2019 12:00:00 AM EDT [facility] Name Value Range Interpretation Code Description Data Naty rce(s) Supporting Document(s ) nCoV [facility] RNA XXX MARYURI+probe- Imp This lab was ordered by [employer] and repo rted by [employer] ID Date Data Source [id number] 11/29/2019 12:00:00 AM EDT [facility] Name Value Range Interpretation Code Description Data Naty rce(s) Supporting Document(s ) nCoV [facility] RNA XXX MARYURI+probe- Imp This lab was ordered by [employer] and repo rted by [employer] ID Date Data Source [id number] 11/28/2019 12:00:00 AM EDT [facility] Name Value Range Interpretation Code Description Data Naty rce(s) Supporting Document(s ) 2018-nCoV [facility] RNA XXX MARYURI+probe- Imp This lab was ordered by [employer] and repo rted by [employer] ID Date Data Source [id number] 11/11/2019 12:00:00 AM EDT [facility] Name Value Range Interpretation Code Description Data Naty rce(s) Supporting Document(s ) nCoV [facility] RNA XXX MARYURI+probe- Imp This lab was ordered by [employer] and repo rted by [employer] ID Date Data Source [id number] 10/07/2019 12:00:00 AM EDT [facility] Name Value Range Interpretation Code Description Data Naty rce(s) Supporting Document(s ) nCoV [facility] RNA XXX MARYURI+probe- Imp This lab was ordered by [facility] and reported by [employer] ID Date Data Source [id number] 05/02/2019 03:54:00 PM [facility] Name Value Range Interpretation Description Data Sup porting Code Source(s) Document(s ) Aspartate 16 U/L White aminotransferase [place] [Enzymatic Hospital activity/volume] in Serum or Plasma ID Date Data Source [id number] 05/02/2019 03:54:00 PM EST [facility] Name Value Range Interpretation Description Data Sup porting Code Source(s) Document(s ) Alanine 12 U/L White aminotransferase [place] [Enzymatic Hospital activity/volume] in Serum or Plasma ID Date Data Source [id number] 05/02/2019 03:54:[address] [facility] Hospital Name Value Range Interpretation Description Data Sup porting Code Source(s) Document(s ) Alkaline 47 U/L [facility] phosphatase Hospital [Enzymatic activity/volume ] in Serum or Plasma ID Date Data Source [id number] 05/02/2019 03:54:00 PM [facility] Name Value Range Interpretation Description Data Sup porting Code Source(s) Document(s ) Bilirubin.t 0.3 mg/dL [facility] [Mass/volum e] in Serum or Plasma ID Date Data Source [id number] 05/02/2019 03:54:00 PM [facility] Name Value Range Interpretation Code Description Data Naty rce(s) Supporting Document(s ) [facility] in Serum or Plasma ID Date Data Source [id number] 05/02/2019 03:54:[address] [facility] Hospital Name Value Range Interpretation Description Data Sup porting Code Source(s) Document(s ) Albumin 4.6 g/dL [facility] [Mass/volume Hospital ] in Serum or Plasma ID Date Data Source [id number] 05/02/2019 03:54:00 PM [facility] Name Value Range Interpretation Description Data Sup porting Code Source(s) Document(s ) Protein 6.9 g/dL [facility] [Mass/volume Hospital ] in Serum or Plasma ID Date Data Source [id number] 05/02/2019 03:54:00 PM EST [facility] Name Value Range Interpretation Description Data Sup porting Code Source(s) Document(s ) Calcium 8.9 mg/dL [facility] [Mass/volume Hospital ] in Serum or Plasma ID Date Data Source [id number] 05/02/2019 03:54:00 PM EST [facility] Name Value Range Interpretation Code Description Data Naty rce(s) Supporting Document(s ) Urea 16.7 [facility] nitrogen/Cre Hospital atinine [Mass Ratio] in Serum or Plasma ID Date Data Source [id number] 05/02/2019 03:54:00 PM EST [facility] Name Value Range Interpretation Description Data Sup porting Code Source(s) Document(s ) Creatinine 0.6 mg/dL [facility] [Mass/volume] Hospital in Serum or Plasma ID Date Data Source [id number] 05/02/2019 03:54:00 PM EST [facility] Name Value Range Interpretation Description Data Sup porting Code Source(s) Document(s ) Urea 10 mg/dL [facility] nitrogen Hospital [Mass/volume ] in Serum or Plasma ID Date Data Source [id number] 05/02/2019 03:54:00 PM EST [facility] Name Value Range Interpretation Code Description Data Naty rce(s) Supporting Document(s ) Anion gap in 12 [facility] Serum or Hospital Plasma ID Date Data Source [id number] 05/02/2019 03:54:00 PM EST [facility] Name Value Range Interpretation Description Data Sup porting Code Source(s) Document(s ) Carbon 24 mmol/L [facility] dioxide, Hospital total [Moles/volu me] in Serum or Plasma ID Date Data Source [id number] 05/02/2019 03:54:00 PM EST [facility] Name Value Range Interpretation Description Data Sup porting Code Source(s) Document(s ) Chloride 107 [facility] [Moles/volum mmol/L Hospital e] in Serum or Plasma ID Date Data Source [id number] 05/02/2019 03:54:00 PM EST [facility] Name Value Range Interpretation Description Data Sup porting Code Source(s) Document(s ) Potassium 4.0 [facility] [Moles/volume mmol/L Hospital ] in Serum or Plasma ID Date Data Source [id number] 05/02/2019 03:54:00 PM EST [facility] Value Range Interpretation Description Data Sup porting Code Source(s) Document(s ) Sodium 139 mmol/L [facility] [Moles/volu Hospital me] in Serum or Plasma ID Date Data Source [id number] 05/02/2019 03:54:00 PM [facility] Value Range Interpretation Description Data Sup porting Code Source(s) Document(s ) Glucose 80 mg/dL [facility] [Mass/volume Hospital ] in Serum or Plasma ID Date Data Source [id number] 05/02/2019 03:54:00 PM [facility] Value Range Interpretation Code Description Data Supporting Source(s) Document(s ) NUCLEATED RBCS 0.0 % [facility] (AUTO Hospital DIFF%)DIS ID Date Data Source [id number] 05/02/2019 03:54:00 PM [facility] Value Range Interpretation Description Data Sup porting Code Source(s) Document(s ) Differential AUTOMATED [facility] cell count Hospital method - Blood ID Date Data Source [id number] 05/02/2019 03:54:00 PM EST [facility] Name Value Range Interpretation Description Data Sup porting Code Source(s) Document(s ) Immature 0.01 [facility] granulocytes 10*3/uL Hospital [#/volume] in Blood by Automated count ID Date Data Source [id number] 05/02/2019 03:54:00 PM EST [facility] Name Value Range Interpretation Description Data Sup porting Code Source(s) Document(s ) Basophils 0.04 [facility] [#/volume] in 10*3/uL Hospital Blood by Automated count ID Date Data Source [id number] 05/02/2019 03:54:00 PM EST [facility] Value Range Interpretation Description Data Sup porting Code Source(s) Document(s ) Eosinophils 0.21 [facility] [#/volume] in 10*3/uL Hospital Blood by Automated count ID Date Data Source [id number] 05/02/2019 03:54:00 PM [facility] Value Range Interpretation Description Data Sup porting Code Source(s) Document(s ) Monocytes 0.47 [facility] [#/volume] in 10*3/uL Hospital Blood by Automated count ID Date Data Source [id number] 05/02/2019 03:54:00 PM [facility] Value Range Interpretation Description Data Sup porting Code Source(s) Document(s ) Lymphocytes 2.02 [facility] [#/volume] in 10*3/uL Hospital Blood by Automated count ID Date Data Source [id number] 05/02/2019 03:54:00 PM EST [facility] Name Value Range Interpretation Description Data Sup porting Code Source(s) Document(s ) Neutrophils 2.84 [facility] [#/volume] in 10*3/uL Hospital Blood by Automated count ID Date Data Source [id number] 05/02/2019 03:54:00 PM EST [facility] Name Value Range Interpretation Description Data Sup porting Code Source(s) Document(s ) Nucleated 0.0 % [facility] erythrocytes/10 Hospital 0 leukocytes [Ratio] in Blood by Automated count ID Date Data Source [id number] 05/02/2019 03:54:00 PM EST [facility] Value Range Interpretation Description Data Sup porting Code Source(s) Document(s ) Immature 0.2 % [facility] granulocytes/10 Hospital 0 leukocytes in Blood by Automated count ID Date Data Source [id number] 05/02/2019 03:54:00 PM EST [facility] Value Range Interpretation Description Data Sup porting Code Source(s) Document(s ) Basophils/100 0.7 % [facility] leukocytes in Hospital Blood by Automated count ID Date Data Source [id number] 05/02/2019 03:54:00 PM EST [facility] Value Range Interpretation Description Data Sup porting Code Source(s) Document(s ) Eosinophils/100 3.8 % [facility] leukocytes in Hospital Blood by Automated count ID Date Data Source [id number] 05/02/2019 03:54:00 PM EST [facility] Value Range Interpretation Description Data Sup porting Code Source(s) Document(s ) Monocytes/100 8.4 % [facility] leukocytes in Hospital Blood by Automated count ID Date Data Source [id number] 05/02/2019 03:54:00 PM EST [facility] Name Value Range Interpretation Description Data Sup porting Code Source(s) Document(s ) Lymphocytes/10 36.1 % [facility] 0 leukocytes Hospital in Blood by Automated count ID Date Data Source [id number] 05/02/2019 03:54:00 PM EST [facility] Name Value Range Interpretation Description Data Sup porting Code Source(s) Document(s ) Neutrophils/10 50.8 % [facility] 0 leukocytes Hospital in Blood by Automated count ID Date Data Source [id number] 05/02/2019 03:54:00 PM [facility] Name Value Range Interpretation Description Data Sup porting Code Source(s) Document(s ) Platelet mean 10.2 fL [facility] volume Hospital [Entitic volume] in Blood by Automated count ID Date Data Source [id number] 05/02/2019 03:54:00 PM [facility] Name Value Range Interpretation Description Data Sup porting Code Source(s) Document(s ) Platelets 209 [facility] [#/volume] in 10*3/uL Hospital Blood by Automated count ID Date Data Source [id number] 05/02/2019 03:54:00 PM [facility] Value Range Interpretation Description Data Sup porting Code Source(s) Document(s ) Erythrocyte 19.8 % [facility] Hospital width [Ratio] by Automated count ID Date Data Source [id number] 05/02/2019 03:54:00 PM [facility] Value Range Interpretation Description Data Sup porting Code Source(s) Document(s ) Erythrocyte mean 29.6 [facility] corpuscular g/dL Hospital hemoglobin concentration [Mass/volume] by Automated count ID Date Data Source [id number] 05/02/2019 03:54:00 PM [facility] Name Value Range Interpretation Description Data Sup porting Code Source(s) Document(s ) Erythrocyte 20.1 pg [facility] corpuscular hemoglobin [Entitic mass] by Automated count ID Date Data Source [id number] 05/02/2019 03:54:00 PM [facility] Value Range Interpretation Description Data Sup porting Code Source(s) Document(s ) Erythrocyte 68.1 fL [facility] Hospital corpuscular volume [Entitic volume] by Automated count ID Date Data Source [id number] 05/02/2019 03:54:00 PM [facility] Name Value Range Interpretation Description Data Sup porting Code Source(s) Document(s ) Hematocrit 30.1 % [facility] [Volume Hospital Fraction] of Blood by Automated count ID Date Data Source [id number] 05/02/2019 03:54:00 PM [facility] Name Value Range Interpretation Description Data Sup porting Code Source(s) Document(s ) Hemoglobin 8.9 g/dL [facility] [Mass/volume] Hospital in Blood ID Date Data Source [id number] 05/02/2019 03:54:00 PM [facility] Name Value Range Interpretation Description Data Sup porting Code Source(s) Document(s ) Erythrocytes 4.42 [facility] [#/volume] in 10*6/uL Hospital Blood by Automated count ID Date Data Source [id number] 05/02/2019 03:54:00 PM [facility] Value Range Interpretation Description Data Sup porting Code Source(s) Document(s ) Leukocytes 5.6 [facility] [#/volume] in 10*3/uL Hospital Blood by Automated count ID Date Data Source [id number] 05/02/2019 03:05:00 PM [facility] Value Range Interpretation Description Data Sup porting Code Source(s) Document(s ) Choriogonadotropin NEGATIVE [facility] ( test) [place] [Presence] in Urine Hospital Procedure Vital Signs ID Date Data Source [id number] Name Value Range Interpretation Code Description Data Source(s) Diastolic blood 85 mm[Hg] 85 mm[Hg] [facility] ins pressure Hospital Systolic blood 146 mm[Hg] 146 mm[Hg] [facility] ns pressure Hospital Respiratory rate 18 /min 18 /min [facility] Heart rate 66 /min 66 /min [facility] Body temperature 37.02640 37.14094 [facility] Body temperature 98.6 [degF] 98.6 [degF] [facility] Body mass index 37.0 kg/m2 37.0 kg/m2 [facility]ack ins (BMI) [Ratio] Hospital Body weight 230.49 230.49 [lb_av] [facility] ins [lb_av] Hospital
[2020-04-06 19:52] LABS: IRON SERUM 8 ug/dL (50-175); TOTAL IRON BINDING CAPACITY 462 ug/dL (250-450)
--- NOTE | 2020-04-06 23:12 | PN ---
Teaching Attending Note Name of Resident: River Jiang ATTENDING PHYSICIAN STATEMENT I saw and evaluated the patient. I reviewed the resident's note and discussed the case with the resident. I agree with the resident's findings and plan as documented. 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 OBJECTIVE: GA AAox3, calm, NAD HEENT pale conjunctiva, neck supple, dry MM, EOMI, no neck pain to palpation Chest CTAB, no crackles or wheezing CVS S1, S2+, sinus tachycardia Abd Soft, NT, ND, BS+ Ext no LE edema, no calf tenderness Psych normal mood and affect, denies SI/HI/AH/VH Vital Signs (72 hours) 04/06/20 04/06/20 04/06/20 10:46 14:30 14:43 Temperature 99.1 F 98.4 F Pulse Rate 90 Pulse Rate [ 78 Left] Respiratory 18 18 Rate Blood Pressure 117/71 Blood Pressure 122/69 [Right Arm] O2 Sat by Pulse 100 99 99 Oximetry (%) 04/06/20 04/06/20 04/06/20 14:57 17:40 18:09 Temperature 98.1 F 98.3 F 98.4 F Pulse Rate 66 Pulse Rate [ 88 66 Left] Respiratory 18 18 20 Rate Blood Pressure 140/80 Blood Pressure 113/73 141/81 [Right Arm] O2 Sat by Pulse 100 100 100 Oximetry (%) 04/06/20 04/06/20 18:15 22:00 Temperature 98.7 F 99.0 F Pulse Rate 77 Pulse Rate [ Left] Respiratory 18 Rate Blood Pressure 130/82 Blood Pressure [Right Arm] O2 Sat by Pulse 98 Oximetry (%) Laboratory Results - last 24 hr 04/06/20 04/06/20 04/06/20 12:03 12:11 12:11 WBC 4.1 RBC 2.48 L Hgb 5.1 L* Hct 16.7 L D MCV 67.3 L MCH 20.6 L MCHC 30.6 L RDW 20.5 H Plt Count 247 MPV 9.3 Absolute Neuts (auto) 2.2 Neutrophils % 55.1 Lymphocytes % 32.4 Monocytes % 8.3 Eosinophils % 3.6 Basophils % 0.6 Nucleated RBC % 0 Hypochromia 3+ Platelet Estimate Normal Platelet Comment No clumping noted Polychromasia 1+ Poikilocytosis 1+ Anisocytosis 2+ Microcytosis 2+ Tear Drop Cells 1+ Ovalocytes 1+ Stomatocytes 1+ PT with INR 12.40 INR 1.01 PTT (Actin FS) 25.8 Sodium 139 Potassium 3.8 Chloride 109 H Carbon Dioxide 26 Anion Gap 3 L BUN 7.0 Creatinine 0.6 Est GFR (CKD-EPI)AfAm 142.76 Est GFR (CKD-EPI)NonAf 123.17 Random Glucose 86 Calcium 8.8 Magnesium 2.1 Iron 8 L TIBC 462 H Iron Saturation 1 L Unsaturated IBC 454 H Ferritin 2.0 L Total Bilirubin 0.4 AST 14 L ALT 16 Alkaline Phosphatase 38 L Total Protein 6.8 Albumin 3.5 TSH 0.87 Free T4 0.84 Beta HCG, Quant < 1.0 Stool Occult Blood Blood Type Antibody Screen Crossmatch 04/06/20 04/06/20 04/06/20 12:11 13:23 14:09 WBC RBC Hgb Hct MCV MCH MCHC RDW Plt Count MPV Absolute Neuts (auto) Neutrophils % Lymphocytes % Monocytes % Eosinophils % Basophils % Nucleated RBC % Hypochromia Platelet Estimate Platelet Comment Polychromasia Poikilocytosis Anisocytosis Microcytosis Tear Drop Cells Ovalocytes Stomatocytes PT with INR INR PTT (Actin FS) Sodium Potassium Chloride Carbon Dioxide Anion Gap BUN Creatinine Est GFR (CKD-EPI)AfAm Est GFR (CKD-EPI)NonAf Random Glucose Calcium Magnesium Iron TIBC Iron Saturation Unsaturated IBC Ferritin Total Bilirubin AST ALT Alkaline Phosphatase Total Protein Albumin TSH Free T4 Beta HCG, Quant Stool Occult Blood Negative Blood Type A POSITIVE Cancelled Antibody Screen Negative Cancelled Crossmatch See Detail Home Medications Medication Instructions Recorded NK [No Known Home Medication] 04/06/20 ASSESSMENT AND PLAN: 29 F Symptomatic anemia 2/2 heavy menstrual bleeding Chronic ESSIE 2/2 menorrhagia r/o underlying thalassemia H/o Bipolar depression (not on meds) Plan: Transfuse pRBC for goal of Hgb >7.0 Give 1 dose of IV venofer Send iron studies, Hgb electrophoresis -CBC fits ESSIE pattern with low iron/ferritin and very high TIBC (would expect normal TIBC in thalassemia) [employer] consult for contraception options Hematology consult for IV iron infusions DVT ppx: OOB to chair, SCD
[2020-04-06] MEDS ORDERED: ACETAMINOPHEN 325 MG TABLET (FP) PO PRN (23:45)
[2020-04-07 03:34] LABS: HEMATOCRIT 23.3 % (32.4-45.2); HEMOGLOBIN 7.5 GM/dL (10.7-15.3); MCHC 32.3 g/dl (32.0-36.0); MEAN CELL VOLUME 71.2 fl (80-96); MEAN PLT VOLUME 9.2 fl (7.5-11.1); PLATELET COUNT 245 K/MM3 (134-434); RBC 3.27 M/mm3 (3.60-5.2); RDW 23.5 % (11.6-15.6); WHITE BLOOD COUNT 4.9 K/mm3 (4.0-10.0)
[2020-04-07 07:39] LABS: CALCIUM 8.6 mg/dL (8.5-10.1)
[2020-04-07 07:40] LABS: ALBUMIN 3.4 g/dl (3.4-5.0); BLOOD UREA NITROGEN 4.8 mg/dL (7-18); MAGNESIUM 2.4 mg/dL (1.8-2.4)
[2020-04-07 07:43] LABS: CREATININE 0.6 mg/dL (0.55-1.3)
[2020-04-07 07:44] LABS: PHOSPHOROUS 3.9 mg/dL (2.5-4.9)
[2020-04-07 07:45] LABS: BILIRUBIN,TOTAL 0.7 mg/dL (0.2-1); TOT PROT 6.7 g/dl (6.4-8.2)
[2020-04-07 11:01] VITALS: BP 147/98; PULSE 74; TEMP 99.2
[2020-04-07] MEDS ORDERED: MULTIVITAMINS (DAILY MVI) TABLET (FP) PO SCH (11:30)
[2020-04-07 12:31] LABS: BASO % 0.7 % (0-2.0); HEMATOCRIT 23.5 % (32.4-45.2); HEMOGLOBIN 7.4 GM/dL (10.7-15.3); LYMPH % 30.9 % (8-40); MCH 22.5 pg (25.7-33.7); MCHC 31.6 g/dl (32.0-36.0); MEAN CELL VOLUME 71.4 fl (80-96); MEAN PLT VOLUME 9.2 fl (7.5-11.1); MONO % 10.4 % (3.8-10.2); PLATELET COUNT 239 K/MM3 (134-434); RDW 23.3 % (11.6-15.6); WHITE BLOOD COUNT 4.4 K/mm3 (4.0-10.0)
[2020-04-07] MEDS ORDERED: FERROUS SO4 325 MG TABLET (FP) PO SCH (13:15)
[2020-04-07] MEDS ORDERED: CYANOCOBALAMIN (VITAMIN B-12) 100 MCG TABLET PO SCH (13:15)
--- NOTE | 2020-04-07 13:17 | DS ---
Physical Exam: SUBJECTIVE: Patient seen and examined. Tells me that she feels better and wants to go home. She has an appointment to see her primary care doctor on Thursday. She tells me that after she received the 2 units of blood, she feels much better. No shortness of breath, no palpitations and no fatigue. She is a vegetarian and feels that she has "n eglected" herself and not eaten right. She has a new PCP and has a follow up appointment on Thursday and will have blood work repeated there. She will follow up with the [facility] doctor and the senior operations manager as an outpatient. OBJECTIVE: hmg/hct more stable. Would like to keep her overnight and repeat her blood work in the morning but she is refusing to stay longer. She assured me that she will see her PCP and make a follow up appointment with the senior operations manager. She looks comfortable at rest, denies any chest pain or shortness of breath. b12 levels low, start supplements start multivitamin start iron therapy bid her PCP will assess ongoing need for the above Vital Signs Period Temp Pulse Resp BP Sys/Hess Pulse Ox Last 24 Hr 98.1 F-99.2 F 66-88 18-20 113-147/69-98 98-100 PHYSICAL EXAM GENERAL: The patient is awake, alert, and fully oriented, in no acute distress. HEAD: Normal with no signs of trauma. EYES: PERRL, extraocular movements intact, sclera anicteric, conjunctiva clear. ENT: Ears normal, nares patent, oropharynx clear without exudates, moist mucous membranes. NECK: Trachea midline, full range of motion, supple. LUNGS: Breath sounds equal, clear to auscultation bilaterally, no wheezes, no crackles, no accessory muscle use. HEART: Regular rate and rhythm, S1, S2 without murmur, rub or gallop. ABDOMEN: Soft, nontender, nondistended, normoactive bowel sounds, no guarding, no rebound, no hepatosplenomegaly, no masses. EXTREMITIES: 2+ pulses, warm, well-perfused, no edema. NEUROLOGICAL: Cranial nerves II through XII grossly intact. Normal speech, gait not observed. PSYCH: Normal mood, normal affect. SKIN: Warm, dry, normal turgor, no rashes or lesions noted. LABS Laboratory Results - last 24 hr 04/06/20 04/06/2020 12:03 12:11 12:11 WBC RBC Hgb Hct MCV MCH MCHC RDW Plt Count MPV Absolute Neuts (auto) Neutrophils % Lymphocytes % Monocytes % Eosinophils % Basophils % Nucleated RBC % Hypochromia 3+ Platelet Estimate Normal Platelet Comment No clumping noted Polychromasia 1+ Poikilocytosis 1+ Anisocytosis 2+ Microcytosis 2+ Tear Drop Cells 1+ Ovalocytes 1+ Stomatocytes 1+ Sodium 139 Potassium 3.8 Chloride 109 H Carbon Dioxide 26 Anion Gap 3 L BUN 7.0 Creatinine 0.6 Est GFR (CKD-EPI)AfAm 142.76 Est GFR (CKD-EPI)NonAf 123.17 Random Glucose 86 Calcium 8.8 Phosphorus Magnesium 2.1 Iron 8 L TIBC 462 H Iron Saturation 1 L Unsaturated IBC 454 H Ferritin 2.0 L Total Bilirubin 0.4 AST 14 L ALT 16 Alkaline Phosphatase 38 L Total Protein 6.8 Albumin 3.5 Vitamin B12 Serum Folate TSH 0.87 Free T4 0.84 Beta HCG, Quant < 1.0 Stool Occult Blood COVID-19 ([facility]) Blood Type A POSITIVE Antibody Screen Negative Crossmatch See Detail 04/06/20 04/06/20 04/06/20 13:22 13:23 14:09 WBC RBC Hgb Hct MCV MCH MCHC RDW Plt Count MPV Absolute Neuts (auto) Neutrophils % Lymphocytes % Monocytes % Eosinophils % Basophils % Nucleated RBC % Hypochromia Platelet Estimate Platelet Comment Polychromasia Poikilocytosis Anisocytosis Microcytosis Tear Drop Cells Ovalocytes Stomatocytes Sodium Potassium Chloride Carbon Dioxide Anion Gap BUN Creatinine Est GFR (CKD-EPI)AfAm Est GFR (CKD-EPI)NonAf Random Glucose Calcium Phosphorus Magnesium Iron TIBC Iron Saturation Unsaturated IBC Ferritin Total Bilirubin AST ALT Alkaline Phosphatase Total Protein Albumin Vitamin B12 Serum Folate TSH Free T4 Beta HCG, Quant Stool Occult Blood Negative COVID-19 ([facility]) Not detected Blood Type Cancelled Antibody Screen Cancelled Crossmatch 04/07/20 04/07/20 04/07/20 02:55 06:40 06:40 WBC 4.9 RBC 3.27 L Hgb 7.5 L Hct 23.3 L D MCV 71.2 L MCH 23.0 L D MCHC 32.3 RDW 23.5 H Plt Count 245 MPV 9.2 Absolute Neuts (auto) Neutrophils % Lymphocytes % Monocytes % Eosinophils % Basophils % Nucleated RBC % Hypochromia Platelet Estimate Platelet Comment Polychromasia Poikilocytosis Anisocytosis Microcytosis Tear Drop Cells Ovalocytes Stomatocytes Sodium 138 Potassium 4.0 Chloride 107 Carbon Dioxide 25 Anion Gap 6 L BUN 4.8 L Creatinine 0.6 Est GFR (CKD-EPI)AfAm 142.76 Est GFR (CKD-EPI)NonAf 123.17 Random Glucose 82 Calcium 8.6 Phosphorus 3.9 Magnesium 2.4 Iron TIBC Iron Saturation Unsaturated IBC Ferritin Total Bilirubin 0.7 AST 10 L ALT 13 Alkaline Phosphatase 37 L Total Protein 6.7 Albumin 3.4 Vitamin B12 180 L Serum Folate 24 H TSH 1.16 Free T4 0.95 Beta HCG, Quant Stool Occult Blood COVID-19 ([facility]) Blood Type Antibody Screen Crossmatch 04/07/20 04/07/20 04/07/20 06:50 06:50 12:00 WBC 4.4 RBC 3.30 L Hgb 7.4 L Hct 23.5 L MCV 71.4 L MCH 22.5 L MCHC 31.6 L RDW 23.3 H Plt Count 239 MPV 9.2 Absolute Neuts (auto) 2.4 Neutrophils % 55.0 Lymphocytes % 30.9 Monocytes % 10.4 H Eosinophils % 3.0 Basophils % 0.7 Nucleated RBC % 0 Hypochromia Platelet Estimate Platelet Comment Polychromasia Poikilocytosis Anisocytosis Microcytosis Tear Drop Cells Ovalocytes Stomatocytes Sodium Potassium Chloride Carbon Dioxide Anion Gap BUN Creatinine Est GFR (CKD-EPI)AfAm Est GFR (CKD-EPI)NonAf Random Glucose Calcium Phosphorus Magnesium Iron TIBC Iron Saturation Unsaturated IBC Ferritin Total Bilirubin AST ALT Alkaline Phosphatase Total Protein Albumin Vitamin B12 Cancelled Serum Folate Cancelled TSH Free T4 Beta HCG, Quant Stool Occult Blood COVID-19 ([facility]) Blood Type Antibody Screen Crossmatch HOSPITAL COURSE: Date of Admission:04/06/20 Date of Discharge: 04/07/20 Minutes to complete discharge: 45 Discharge Summary Problems reviewed: Yes Reason For Visit: ANEMIA Current Active Problems Anemia (Acute) Condition: Improved - Instructions Diet, Activity, Other Instructions: DISCHARGE YOUR VISIT You came to the hospital because your hmg/hct were very low. You had SYMPTOMATIC ANEMIA. SYMPTOMATIC ANEMIA is a condition where you do not have enough blood in your body and you feel weak, short of breath. We have given you two units of blood and your levels are better. You have told me that you will go to your new primary care doctor on Thursday and have repeat blood work. Please do that and note that it is important that you get it no later than Thursday. If you start to get the same symptoms as you did when you were admitted, please return to the hospital immediately. MEDICATIONS START iron 325mg TWICE per day START B12 vitamin once per day START multivitamin once per day Discuss the ongoing need for these medications with your primary care doctor on Thursday. DO NOT TAKE ALEVE, ADVIL, MOTRIN OR ASPIRIN OR ANY MEDICATIONS THAT ARE NSAIDS. DIET Continue your home diet. ADDITIONAL CARE Please see follow up with the senior operations manager by calling their office for an appointment. ADDITIONAL INFORMATION Please call 911 or come directly to the emergency department if you experience unusual headache, vision change, shortness of breath, chest pain, numbness, tingling, loss of alertness/awareness, loss of function, unusual bleeding or any alarming symptoms. Thank you for allowing us to care for you. [facility] Referrals: Kary Mckeon MD [Staff Physician] - Veronica Toth MD [Staff Physician] - Disposition: HOME - Home Medications Comprehensive Discharge Medication List: Ambulatory Orders Cyanocobalamin [Vitamin B12 -] 100 mcg PO DAILY #60 tablet 04/07/20 Ferrous Sulfate [Feosol] 325 mg PO BID #60 ud 04/07/20 Multivitamins [Multivit ([facility] Formulary)] 1 tab PO DAILY #30 tab 04/07/20 Problem List - Problems (1) Anemia Code(s): D64.9 - ANEMIA, UNSPECIFIED Qualifiers: Anemia type: iron deficiency Iron deficiency anemia type: unspecified iron deficiency Qualified Code(s): D50.9 - Iron deficiency anemia, unspecified This patient is new to me today: Yes Date on this admission: 04/07/20 Emergency Visit: Yes ED Registration Date: 04/06/20 Care time: The patient presented to the Emergency Department on the above date and was hospitalized for further evaluation of their emergent condition. Critical Care patient: No - Discharge Referral Referred to [facility] No
[2020-04-07] MEDS ORDERED: PT OWN MED DRAWER 7, Y5N ONE (13:20)
== END 2020-04-07 14:08 | disposition home or self-care (01) | DRG 663 ==
LOC: JER 10:33 → JERBED 15:30 → J8W 18:34
PROVIDERS: ATTEND Nurse Practitioner Family
PROC: 30233N1 Transfusion of Nonautologous Red Blood Cells into Peripheral Vein, Percutaneous Approach (ICD-10-PCS; principal; 2020-04-06)
DX: D50.9 Iron deficiency anemia, unspecified (principal); F31.9 Bipolar disorder, unspecified; D62 Acute posthemorrhagic anemia; E05.00 Thyrotoxicosis with diffuse goiter without thyrotoxic crisis or storm; R00.2 Palpitations; R53.83 Other fatigue; N92.0 Excessive and frequent menstruation with regular cycle
CPT/HCPCS: 36415; 36430; 36511; 71045-TC-FY; 80053; 82272; 82607; 82728; 82746; 83540; 83550; 83735; 84100; 84439; 84443; 84466; 84702; 85025; 85027; 85610; 85730; 86850; 86900; 86901; 86922; 93005; 93010; 99285-25; C9803; P9038; P9058; U0003

== ENCOUNTER 2020-07-24 12:17 | Emergency (ER) | payer OTHER ==
[2020-07-24 12:38] VITALS: BMI 34.7
[2020-07-24] MEDS ORDERED: ACETAMINOPHEN 325 MG TABLET (FP) PO ONE (13:05)
[2020-07-24] MEDS ORDERED: LACTATED RINGERS SOLUTION 1000 ML INFUS.BAG IV ONE (13:08)
[2020-07-24 13:16] LABS: BASO % 1.9 % (0-2.0); EOS % 2.2 % (0-4.5); HEMATOCRIT 29.7 % (32.4-45.2); HEMOGLOBIN 9.1 GM/dL (10.7-15.3); LYMPH % 25.6 % (8-40); MCH 20.5 pg (25.7-33.7); MCHC 30.6 g/dl (32.0-36.0); MEAN CELL VOLUME 67.1 fl (80-96); MEAN PLT VOLUME 9.1 fl (7.5-11.1); MONO % 10.4 % (3.8-10.2); NEUT % 59.9 % (42.8-82.8); PLATELET COUNT 241 K/MM3 (134-434); RBC 4.42 M/mm3 (3.60-5.2); RDW 20.9 % (11.6-15.6); WHITE BLOOD COUNT 4.6 K/mm3 (4.0-10.0)
[2020-07-24] MEDS ORDERED: ACETAMINOPHEN 325 MG TABLET (FP) ONE (13:17)
[2020-07-24 13:46] LABS: CHLORIDE 107 mmol/L (98-107); POTASSIUM 4.2 mmol/L (3.5-5.1); SODIUM 137 mmol/L (136-145)
[2020-07-24 13:49] LABS: ALBUMIN 4.2 g/dl (3.4-5.0); ANION GAP 6 MMOL/L (8-16); BLOOD UREA NITROGEN 11.3 mg/dL (7-18); CALCIUM 9.6 mg/dL (8.5-10.1); CO2 23 mmol/L (21-32); GLUCOSE,RANDOM 101 mg/dL (74-106)
[2020-07-24 13:52] LABS: CREATININE 0.7 mg/dL (0.55-1.3); SGOT/AST 18 U/L (15-37); SGPT/ALT 17 U/L (13-61)
[2020-07-24 13:53] LABS: BILIRUBIN,TOTAL 0.5 mg/dL (0.2-1); TOT PROT 7.9 g/dl (6.4-8.2)
[2020-07-24 13:55] LABS: ALK PHOS 42 U/L (45-117)
[2020-07-24 14:22] LABS: EPI CELLS >36 /uL (0-25.1); HCG,QUALITATIVE URINE Negative; HYALINE CASTS 11 /uL (0-3.1); URINE APPEARANCE CLOUDY; URINE BACTERIA 1423 /uL (0-1359); URINE BILIRUBIN NEGATIVE (NEGATIVE); URINE COLOR YELLOW; URINE GLUCOSE (UA) NEGATIVE (NEGATIVE); URINE KETONE 3+ (NEGATIVE); URINE LEUK ESTERASE NEGATIVE (NEGATIVE); URINE NITRITE NEGATIVE (NEGATIVE); URINE PROTEIN TRACE (NEGATIVE); URINE RBC 14 /uL (0-23.9); URINE UROBILINOGEN 0.2 mg/dL (0.2-1.0); URINE WBC 24 /uL (0-25.8)
[2020-07-24 16:16] VITALS: BP 126/78; PULSE 72; TEMP 98.5
== END 2020-07-24 16:16 | disposition home or self-care (01) ==
LOC: JER 12:17
DX: R55 Syncope and collapse (principal); S06.0X9A Concussion with loss of consciousness of unspecified duration, initial encounter
CPT/HCPCS: 36415; 70450-TC; 71045-TC-FY; 72125-TC; 80053; 81003; 82272; 82550; 82962; 83735; 84443; 84484; 84703; 85025; 86850; 86900; 86901; 87086; 93005; 93010; 99285-25

== ENCOUNTER 2021-02-21 13:42 | Observation (INO) | payer SELFPAY ==
[2021-02-21 15:35] LABS: BASO % 1.1 % (0-2.0); EOS % 2.5 % (0-4.5); HEMATOCRIT 24.9 % (32.4-45.2); HEMOGLOBIN 7.6 GM/dL (10.7-15.3); LYMPH % 31.3 % (8-40); MCHC 30.5 g/dl (32.0-36.0); MEAN CELL VOLUME 62.4 fl (80-96); MEAN PLT VOLUME 8.1 fl (7.5-11.1); MONO % 6.8 % (3.8-10.2); NEUT % 58.3 % (42.8-82.8); PLATELET COUNT 261 10^3/uL (134-434); RBC 3.99 M/mm3 (3.60-5.2); RDW 20.8 % (11.6-15.6)
[2021-02-21 15:40] LABS: INR 1.02 (0.83-1.09); PROTHROMBIN TIME (PATIENT) 12.5 SEC (9.7-13.0)
[2021-02-21 15:43] LABS: ACTIVATED PTT 26.9 SECONDS (25.2-36.5)
[2021-02-21 15:56] LABS: ALBUMIN 3.8 g/dl (3.4-5.0); CALCIUM 8.7 mg/dL (8.5-10.1)
[2021-02-21 15:59] LABS: CREATININE 0.7 mg/dL (0.55-1.3)
[2021-02-21 16:01] LABS: BILIRUBIN,TOTAL 0.2 mg/dL (0.2-1); TOT PROT 7.5 g/dl (6.4-8.2)
[2021-02-21 19:05] LABS: ANISOCYTOSIS 1+; MACROCYTOSIS 0; PLATELET ESTIMATE NORMAL
[2021-02-21 19:22] LABS: RETICULOCYTES 1.29 % (0.5-1.5)
[2021-02-21 20:54] VITALS: BMI 33.4
[2021-02-22 01:12] LABS: HEMATOCRIT 27.4 % (32.4-45.2); HEMOGLOBIN 8.7 GM/dL (10.7-15.3); MCH 20.3 pg (25.7-33.7); MCHC 31.6 g/dl (32.0-36.0); MEAN CELL VOLUME 64.1 fl (80-96); MEAN PLT VOLUME 8.4 fl (7.5-11.1); PLATELET COUNT 243 10^3/uL (134-434); RBC 4.27 M/mm3 (3.60-5.2); RDW 22.6 % (11.6-15.6); WHITE BLOOD COUNT 6.4 K/mm3 (4.0-10.0)
[2021-02-22 08:14] LABS: HEMATOCRIT 27.3 % (32.4-45.2); HEMOGLOBIN 8.6 GM/dL (10.7-15.3); MCH 20.5 pg (25.7-33.7); MCHC 31.7 g/dl (32.0-36.0); MEAN CELL VOLUME 64.8 fl (80-96); MEAN PLT VOLUME 8.8 fl (7.5-11.1); PLATELET COUNT 236 10^3/uL (134-434); RBC 4.21 M/mm3 (3.60-5.2); RDW 22.6 % (11.6-15.6); WHITE BLOOD COUNT 4.8 K/mm3 (4.0-10.0)
[2021-02-22 08:25] LABS: ALBUMIN 3.5 g/dl (3.4-5.0); BLOOD UREA NITROGEN 8.5 mg/dL (7-18); CALCIUM 8.1 mg/dL (8.5-10.1); MAGNESIUM 2.2 mg/dL (1.8-2.4)
[2021-02-22 08:28] LABS: CREATININE 0.6 mg/dL (0.55-1.3)
[2021-02-22 08:31] LABS: BILIRUBIN,TOTAL 0.8 mg/dL (0.2-1)
[2021-02-22 12:29] VITALS: BP 134/74; PULSE 65; TEMP 98.8
== END 2021-02-22 14:35 | disposition home or self-care (01) ==
LOC: JER 13:42 → JERBED 16:33 → J7W 20:27
PROVIDERS: ADMIT Internal Medicine; ATTEND Internal Medicine
PROC: 30233N1 Transfusion of Nonautologous Red Blood Cells into Peripheral Vein, Percutaneous Approach (ICD-10-PCS; principal; 2021-02-21)
DX: D64.9 Anemia, unspecified (principal); U07.1 COVID-19; N92.0 Excessive and frequent menstruation with regular cycle; F31.9 Bipolar disorder, unspecified; E03.9 Hypothyroidism, unspecified; J45.909 Unspecified asthma, uncomplicated; D56.9 Thalassemia, unspecified; E05.00 Thyrotoxicosis with diffuse goiter without thyrotoxic crisis or storm; K31.84 Gastroparesis
CPT/HCPCS: 36430; P9016; 36415; 80053; 82272; 82607; 82728; 82746; 83540; 83550; 83735; 84443; 84703; 85025; 85027; 85045; 85610; 85730; 86850; 86900; 86901; 86922; 93005; 93010; 99285-25; C9803; G0378; P9058; U0003; U0005

== ENCOUNTER 2021-09-30 08:48 | Emergency (ER) | payer OTHER ==
[2021-09-30 09:19] VITALS: BP 116/78; PULSE 76; TEMP 97.8; BMI 30.8
[2021-09-30] MEDS ORDERED: ONDANSETRON 4 MG/2 ML VIAL IVPUSH ONE (10:35)
[2021-09-30] MEDS ORDERED: SODIUM CHLORIDE 0.9% 500 ML INFUS.BAG IV ONE ×2 (10:35→15:50)
[2021-09-30] MEDS ORDERED: MAG HYDROX/AL HYDROX/SIMETH 30 ML UNIT-DOSE CUP PO ONE (10:35)
[2021-09-30] MEDS ORDERED: MAG HYDROX/AL HYDROX/SIMETH 30 ML UNIT-DOSE CUP ONE (12:00)
[2021-09-30] MEDS ORDERED: ONDANSETRON 4 MG/2 ML VIAL ONE (12:00)
[2021-09-30 12:29] LABS: BASO % 0.7 % (0-2.0); EOS % 2.8 % (0-4.5); HEMATOCRIT 29.3 % (32.4-45.2); HEMOGLOBIN 9.1 GM/dL (10.7-15.3); MCH 20.8 pg (25.7-33.7); MCHC 30.9 g/dl (32.0-36.0); MEAN CELL VOLUME 67.2 fl (80-96); MEAN PLT VOLUME 8.7 fl (7.5-11.1); MONO % 7.8 % (3.8-10.2); NEUT % 63.7 % (42.8-82.8); PLATELET COUNT 293 10^3/uL (134-434); RBC 4.36 M/mm3 (3.60-5.2)
[2021-09-30 12:47] LABS: PH,URINE 7.5 (5.0-8.0); URINE APPEARANCE CLEAR; URINE BILIRUBIN NEGATIVE (NEGATIVE); URINE COLOR YELLOW; URINE GLUCOSE (UA) NEGATIVE (NEGATIVE); URINE KETONE NEGATIVE (NEGATIVE); URINE LEUK ESTERASE NEGATIVE (NEGATIVE); URINE NITRITE NEGATIVE (NEGATIVE); URINE PROTEIN NEGATIVE (NEGATIVE); URINE UROBILINOGEN 0.2 mg/dL (0.2-1.0)
[2021-09-30 12:54] LABS: ALBUMIN 3.9 g/dl (3.4-5.0); CALCIUM 9.1 mg/dL (8.5-10.1)
[2021-09-30 12:55] LABS: BLOOD UREA NITROGEN 6.4 mg/dL (7-18)
[2021-09-30 12:57] LABS: CREATININE 0.7 mg/dL (0.55-1.3)
[2021-09-30 12:59] LABS: BILIRUBIN,TOTAL 0.5 mg/dL (0.2-1); TOT PROT 7.7 g/dl (6.4-8.2)
[2021-09-30 13:16] LABS: ANISOCYTOSIS 2+; MACROCYTOSIS 0
[2021-09-30] MEDS ORDERED: morphine CARPU-JECT 4 MG/1 ML DISP.SYRIN IVPUSH ONE (13:52)
[2021-09-30] MEDS ORDERED: morphine SULFATE 4 MG/ML VIAL ONE (14:22)
== END 2021-09-30 16:53 | disposition home or self-care (01) ==
LOC: JER 08:48
PROC: 3E033NZ Introduction of Analgesics, Hypnotics, Sedatives into Peripheral Vein, Percutaneous Approach (ICD-10-PCS; principal; 2021-09-30)
PROC: 3E033GC Introduction of Other Therapeutic Substance into Peripheral Vein, Percutaneous Approach (ICD-10-PCS; 2021-09-30)
DX: R10.13 Epigastric pain (principal)
CPT/HCPCS: 36415; 71046-TC-FY; 74177-TC; 76705-TC; 80053; 81003; 83690; 84703; 85025; 87086; 93005; 93010; 99285-25; Q9967

== ENCOUNTER 2021-10-18 04:25 | Day surgery (SDC) | payer OTHER ==
[2021-10-16 09:14] VITALS: BMI 31.4
[2021-10-18] MEDS ORDERED: BUPIVACAINE HCL/PF 0.5% (5MG/ML) 10 ML VIAL ONE (08:31)
[2021-10-18] MEDS ORDERED: ceFAZolin SODIUM 1 GM VIAL ONE (08:49)
[2021-10-18] MEDS ORDERED: KETOROLAC TROMETHAMINE 30 MG/1 ML VIAL ONE (08:49)
[2021-10-18] MEDS ORDERED: ONDANSETRON 4 MG/2 ML VIAL ONE (08:49)
[2021-10-18] MEDS ORDERED: DEXAMETHASONE SOD PHOSPHATE 4 MG/1 ML VIAL ONE (08:49)
[2021-10-18] MEDS ORDERED: ROCURONIUM BROMIDE 100 MG/10 ML VIAL ONE (08:49)
[2021-10-18] MEDS ORDERED: PROPOFOL 20 ML ONE (08:49)
[2021-10-18] MEDS ORDERED: MIDAZOLAM HCL 2 MG/2 ML SINGLE DOSE VIAL ONE (08:49)
[2021-10-18] MEDS ORDERED: ceFAZolin SODIUM 1 GM VIAL IVPB ONE (09:03)
[2021-10-18] MEDS ORDERED: BUPIVACAINE HCL/PF 0.5% (5 MG/ML) 30 ML VIAL IJ ONE (09:24)
[2021-10-18] MEDS ORDERED: GLYCOPYRROLATE 0.2 MG/1 ML VIAL ONE ×2 (09:56)
[2021-10-18] MEDS ORDERED: NEOSTIGMINE METHYLSULFATE 0.5 MG/ML - 10 ML MDV ONE (09:56)
[2021-10-18] MEDS ORDERED: ONDANSETRON 4 MG/2 ML VIAL IVPUSH PRN (10:20)
[2021-10-18] MEDS ORDERED: PROMETHAZINE HCL 25 MG/1 ML VIAL IVPUSH PRN (10:20)
[2021-10-18] MEDS ORDERED: oxyCODONE HCL 5 MG TABLET PO PRN (10:20)
[2021-10-18] MEDS ORDERED: oxyCODONE HCL 5 MG TABLET ONE (14:16)
[2021-10-18 14:44] VITALS: BP 116/70; PULSE 65; TEMP 98.4
== END 2021-10-18 14:50 | disposition home or self-care (01) ==
LOC: JASU-SURG 04:25
PROVIDERS: ATTEND Surgery
PROC: 0FT44ZZ Resection of Gallbladder, Percutaneous Endoscopic Approach (ICD-10-PCS; principal; 2021-10-18 09:00)
DX: K80.10 Calculus of gallbladder with chronic cholecystitis without obstruction (principal)
CPT/HCPCS: 81025; 88304-TC; 94760